=== PATIENT | female | born 1970 | race Caucasian/White ===

== ENCOUNTER 2023-11-02 10:37 | Inpatient (IN) | payer OTHER, SELFPAY ==
[2023-10-22 07:18] VITALS: BMI 35.6
[2023-10-22 08:49] LABS: Hematocrit 45.3 % (37.0-47.0); Hemoglobin 15.1 g/dL (12.0-16.0); Mean Corp Hgb Conc. 33.3 g/dL (33.0-37.0); Mean Corpuscular Hgb 30.6 pg (27.0-31.0); Mean Corpuscular Volume 91.7 fL (81.0-99.0); Mean Platelet Volume 10.5 fL (7.4-10.4); Platelet Count 214 10^3/uL (130-400); Red Blood Cell Count 4.94 10^6/uL (4.20-5.40); Red Cell Dist. Width 13.1 % (11.5-14.5); White Blood Cell Count 7.3 10^3/uL (4.8-10.8)
[2023-10-22 10:05] LABS: Blood Urea Nitrogen 23 mg/dl (7-17); Calcium 9.9 mg/dl (8.4-10.2); Carbon Dioxide 27 mmol/L (22-30); Chloride 104 mmol/L (98-107); Estimated Creatinine Clearance 94 ml/min; Glucose 96 mg/dl (70-99); Potassium 4.6 mmol/L (3.5-5.1); Sodium 139 mmol/L (135-145); eGFR > 60.00
[2023-11-02] VITALS (19 sets, daily range): BP systolic 25–157; BP diastolic 71–95; BMI 35.6; BMI 35.5
--- NOTE | 2023-11-02 07:26 | HP.FOC2 ---
Focused History & Physical
Chief Complaint
HPI:
Chief Complaint: Incisional hernia
HPI / Indication for Planned Procedure: Ms. Ortega is a 52-year-old female presenting today for scheduled operative correction of her known incisional hernia. She has a past abdominal surgical history of having undergone open total abdominal
hysterectomy, BSO and omentectomy in 2020 through a lower midline laparotomy. She subsequently began noticing swelling in the periumbilical region which was particularly more prominent after weight loss with occasional pressure and mild discomfort.
CT imaging confirmed the presence of a periumbilical incisional hernia spanning a maximal width of up to 5 cm in vertical length of 12 to 14 cm.
Relevant Past Medical History: Other (Left leg lymphedema, allergies, obesity with BMI 35.6)
Relevant Social History: Tobacco Use
Relevant Family History: Negative
Relevant Past Surgical History: Positive for ([place] teeth extraction, LEEP, D&C, CHAD/BSO and partial omentectomy 02/2021)
Review of Systems
Review of Pertinent Systems: All Systems Negative
Medication
See Medication form for detailed medications: Yes
Medication List (including Herbals & OTC):
cetirizine 10 mg tablet 10 mg PO HS Allergies 02/27/21
acetaminophen 500 mg tablet (Tylenol Extra Strength) 1,000 mg PO Q6HPRN PRN pain 03/22/21
ascorbic acid (vitamin C) 1,000 mg tablet (Vitamin C) 1 g PO DAILY 10/27/23
cholecalciferol (vitamin D3) 125 mcg (5,000 unit) tablet (Vitamin D3) 125 mcg PO DAILY 10/27/23
ibuprofen 400 mg tablet 400 mg PO Q6H PRN pain 10/27/23
multivitamin 1 tab PO DAILY 10/27/23
Medications Reviewed: Yes
Allergies and Reactions
Patient has Allergies: Yes
Noted Allergies and Reactions:
Allergy/AdvReac Type Severity Reaction Status Date / Time
grass pollen Allergy asthma Verified 10/27/23 16:07
Pertinent Physical Exam
All Other Systems: Negative
Head/Neck: Normal
Lungs: Normal
Heart: Normal
Abdomen: Other (Midline laparotomy surgical scar, reducible, soft incisional hernias in the periumbilical region. Nontender)
Extremities: Normal
Neurological: Normal
Diagnosis / Assessment
52-year-old female presenting for scheduled operative correction symptomatic incisional hernia
Plan / Procedure
Robotic assisted laparoscopic repair incisional hernia with mesh
Anesthesia/Sedation to be done by Anesthesia Provider: Yes
[2023-11-02] MEDS: TYLENOL 1000 MG PO (08:47)
[2023-11-02] MEDS: NORMOSOL-R 1000 IV (08:47)
--- NOTE | 2023-11-02 10:37 | W.SUR.PREOP ---
Pre-Operative Surgical Note
-
I have examined this patient prior to the performance of the scheduled procedure.
The patient's condition is unchanged from the time of the current History and
Physical and the patient is able to undergo the scheduled procedure.
--- NOTE | 2023-11-02 15:52 | W.IMMPOSTOP ---
Addendum entered and electronically signed by Lars Yu MD 11/02/23 16:17:
#[id number]
Original Note:
Surgical Immed Post Op Note
-
Primary Surgeon: Lars Yu
Assisting Surgeon: Rufina CEBALLOS
Pre-op Diagnosis: Incisional hernia
Post-op Diagnosis: Retrorectus adhesions
Incisional hernia; 15 cm in maximal length
Procedure Performed: Robotic assisted laparoscopic lysis of adhesions encompassing 90 minutes plus of operative time in addition to typical operative time
Robotic assisted laparoscopic eTEP retrorectus mesh repair incisional hernias; Bard soft mesh 30 cm x 15 cm
Anesthesia Type: GETA +0.25% Marcaine
Specimen / Cultures: None
Estimated Blood Loss: 30 mL
Complications: None immediate
Operative Findings: Left-sided retrorectus access for eTEP retrorectus incisional hernia repair. Significant posterior sheath/peritoneal adhesions to the rectus muscle around the vicinity of hernias at lower abdominal wall increasing typical
operative time 90+ minutes. Multiple incisional hernias spanning a length of lower abdominal laparotomy compassing total vertical length of 15 cm and 5 cm in width. Fascial defect closed with #1 PDS strata fix. Retrorectus mesh repair with 30 cm
x 15 cm Bard soft mesh.
The assistance of LIN Powell was required due to the complexity of the procedure. During the procedure LIN Powell assisted with retraction, assistance with robotic instrumentation, and closure of the wound. I was present for the entirety
of the procedure.
Drains: 19 Pancho position from left lower quadrant robotic site into retrorectus location.
Patient updated postoperatively and waiting area
[2023-11-02] MEDS: DILAUDID 0.25 MG IV (16:27)
[2023-11-02] MEDS: NSS 1000 IV (17:21)
[2023-11-02] MEDS: ZOFRAN 4 MG IV (18:15)
[2023-11-02] MEDS: TORADOL 10 MG IV (22:09)
--- NOTE | 2023-11-03 00:48 | PTCARENOTE ---
Patient received from PACU via bed. She was oriented to room and surroundings. She is drowsy but easily arousable to Ox4. HRR Breath sounds are CTA B/L. Abdominal binder in place. Lap site with surgical glue intact. Left DUNG drain with
dressing intect draining sanguineous drainage. Cox draining clear yellow urine. IVF as ordered. VSS.
[2023-11-03] MEDS: NSS 1000 IV ×2 (01:15→08:32)
[2023-11-03 03:30] VITALS: BP 134/83
[2023-11-03 05:41] LABS: Hematocrit 38.5 % (37.0-47.0); Mean Corp Hgb Conc. 33.8 g/dL (33.0-37.0); Mean Corpuscular Hgb 31.4 pg (27.0-31.0); Mean Platelet Volume 10.1 fL (7.4-10.4); Platelet Count 162 10^3/uL (130-400); Red Blood Cell Count 4.14 10^6/uL (4.20-5.40)
[2023-11-03 06:22] LABS: Blood Urea Nitrogen 10 mg/dl (7-17); Calcium 8.7 mg/dl (8.4-10.2); Carbon Dioxide 28 mmol/L (22-30); Chloride 107 mmol/L (98-107); Estimated Creatinine Clearance 110 ml/min; Glucose 90 mg/dl (70-99); Potassium 4.2 mmol/L (3.5-5.1); Sodium 137 mmol/L (135-145); eGFR > 60.00
--- NOTE | 2023-11-03 07:17 | W.PN.GS2 ---
Today's Communication / Plan
-
`
Assessment / Plan
-
Assessment: 52 y/o female POD#1 s/p Robotic assisted laparoscopic eTEP retrorectus mesh repair incisional hernias (15cm)
AFVSS
doing well post op
DUNG with expected character/quantity post op
Plan: multimodal pain control options- toradol/dilaudid/oxy when ally PO
full liquids and advance to regular diet if no nausea/distention
ambulate/OOBTC
wean supplemental oxygen
payne out and DTV
maintain DUNG
SCDs/Lovenox/ambulation for VTEp
Subjective Data
-
Date of Service: November 03, 2023
pt seen and examined
comfortable when lying in bed with pain control
initial post op nausea subsided
+flatus
Objective Data
-
Intake and Output
11/02/23 11/03/23 11/04/23
06:59 06:59 06:59
Intake Total 1790 / 1790
Output Total 1290 / 1290
Balance 500 / 500
Intake:
Oral fluids 160 / 160
IV fluids (Total) 1630 / 1630
NSS @ 120 ML/HR 160 / 160
Normosol 150 / 150
Output:
Drain Output (Total) 90 / 90
Left Abdomen Gonzales-Prasad 90 / 90
Urine, Payne 1200 / 1200
Vital Signs
Temp Pulse Resp BP Pulse Ox
98.3 F 83 17 134/83 98
11/03/23 03:30 11/03/23 03:30 11/03/23 03:30 11/03/23 03:30 11/03/23 03:30
Lab Results
11/03/23 05:17
11/03/23 05:17
Calcium 8.7 mg/dl (8.4-10.2) 11/03/23 05:17
Physical Exam
-
NAD AAOx3
ABD: soft, ND, typical post op tenderness at incision sites and midline abdomen
surgical sites with glue dressings
DUNG with SSF
[2023-11-03 08:00] VITALS: BP 133/77
[2023-11-03 08:09] VITALS: BP 133/77
[2023-11-03] MEDS: COLACE 100 MG PO (08:32)
[2023-11-03] MEDS: TORADOL 10 MG IV (09:41)
--- NOTE | 2023-11-03 09:53 | CM ---
Alert awake oriented patient who lives with her Samson in a split story home with 0 step to enter and 12 steps to bed room but usually sleeps in recliner first floor. She is independent in driving and all activities of daily
living.Offered VN she will have a DUNG drain at wa . She picked [facility]
No SNF/VN hx
Pharmacy [facility]
PCP Dr Mary Jon
PLAN Home with [facility] if accepted
[2023-11-03 11:25] VITALS: BP 126/72
--- NOTE | 2023-11-03 12:15 | W.DS.TRANS ---
DC Summary - Network Support Administrator
-
Discharge Instructions:
Sleep Apnea Risk Low
Discharge Diagnosis/Procedures Robotic assisted laparoscopic repair of
incisional hernias with mesh
Diet As tolerated,Regular
Additional Diets Smaller meals initially after surgery has
abdominal bloating and distention are common for
the first few days postoperatively
Activity No strenuous activity
Additional Activity No lifting over 20 pounds for 6 weeks.
Driving Restrictions No driving for 2 to 3 days or if using narcotics
Bathing Restrictions OK to Shower
Wound Care Glue at surgical sites typically peels off in 2
to 3 weeks. Keep DUNG bulb to suction. Empty and
record outputs 2 times a day, and as needed.
Keep paper record of drainage amounts. Okay to
shower with DUNG drain in place. Apply clean/dry
gauze dressing daily and after showers to skin
exit site.
Instructions: Gonzales-Prasad Drain
Stand-Alone Forms:
Changes to Home Medications: No
Discharge Medications:
DC Medications w/original date entered in [employer]
cetirizine 10 mg tablet 10 mg PO HS Allergies 02/27/21
acetaminophen 500 mg tablet (Tylenol Extra Strength) 1,000 mg PO Q6HPRN PRN pain 03/22/21
ascorbic acid (vitamin C) 1,000 mg tablet (Vitamin C) 1 g PO DAILY 10/27/23
cholecalciferol (vitamin D3) 125 mcg (5,000 unit) tablet (Vitamin D3) 125 mcg PO DAILY 10/27/23
ibuprofen 400 mg tablet 400 mg PO Q6H PRN pain 10/27/23
multivitamin 1 tab PO DAILY 10/27/23
oxycodone 5 mg tablet 5 mg PO Q4HPRN PRN breakthrough/severe pain #15 tabs 11/03/23
polyethylene glycol 3350 17 gram/dose oral powder (Miralax) 4 g PO DAILY PRN Constipation #119 grams 11/03/23
Home Medication Changes
Pending Results: No
== END 2023-11-03 14:20 | disposition home health service (06) | DRG 337 ==
LOC: 2 SOUTH 10:37
PROVIDERS: ADMITTING PHYSICIAN Surgery; FAMILY PHYSICIAN Family Medicine
PROC: 0DNW4ZZ Release Peritoneum, Percutaneous Endoscopic Approach (ICD-10-PCS; 2023-11-02)
PROC: 8E0W4CZ Robotic Assisted Procedure of Trunk Region, Percutaneous Endoscopic Approach (ICD-10-PCS; 2023-11-02)
PROC: 0WUF4JZ Supplement Abdominal Wall with Synthetic Substitute, Percutaneous Endoscopic Approach (ICD-10-PCS; 2023-11-02)
DX: K43.2 Incisional hernia without obstruction or gangrene (principal)
CPT/HCPCS: 36415; 80048; 85027; 93005; C1781

== ENCOUNTER 2025-02-21 00:24 | Emergency (ER) | payer OTHER, SELFPAY ==
[2025-02-21 00:38] VITALS: BP 158/94
[2025-02-21 01:01] LABS: Hematocrit 43.8 % (37.0-47.0); Hemoglobin 15.1 g/dL (12.0-16.0); Mean Corp Hgb Conc. 34.5 g/dL (33.0-37.0); Mean Corpuscular Volume 89.0 fL (81.0-99.0); Nucleated Red Blood Cells % 0 %; Platelet Count 212 10^3/uL (130-400); Red Cell Dist. Width 12.7 % (11.5-14.5)
[2025-02-21 01:28] LABS: ALT (SGPT) 22 U/L (0-35); AST (SGOT) 26 U/L (14-36); Albumin 4.8 g/dl (3.5-5.0); Alkaline Phosphatase 61 U/L (38-126); Blood Urea Nitrogen 20 mg/dl (7-17); Calcium 10.1 mg/dl (8.4-10.2); Carbon Dioxide 31 mmol/L (22-30); Chloride 103 mmol/L (98-107); Glucose 122 mg/dl (70-99); Lipase 82 U/L (23-300); Potassium 4.3 mmol/L (3.5-5.1); Sodium 140 mmol/L (135-145); Total Protein 7.7 g/dl (6.3-8.2); eGFR > 60.00
--- NOTE | 2025-02-21 02:18 | ED.GENMED ---
History of Present Illness
General
Chief Complaint: Abdominal Symptoms
Source: patient
Exam Limitations: none
Time Seen by Provider: 02/21/25 02:14
Nursing documentation reviewed up to this point in time: agreed with
History of Present Illness
History of Present Illness:
Note:
CHIEF COMPLAINT(S)
abdominal pain and nausea with vomiting.
HISTORY OF PRESENT ILLNESS
The patient is a 54-year-old female with pmh of asthma, uterine fibroids, htn, with a history of experiencing abdominal pain that began today around 10-11 AM. She described the pain as initially starting after breakfast and worsening following
lunch and dinner. The pain was described as 'from top to bottom' compared to her usual localized gas pain. Typically, the patient experiences what she identifies as gas pain and takes simethicone (Gas-X) or activates digestive enzymes (Beano), which
provide relief. However, today�s pain was relentless and more severe. She notes the pain becoming significantly worse upon lying down around 9:30 PM, which persisted until she vomited twice around 11 PM and midnight. Vomiting led to concerns, as
this is atypical for her usual gas-related issues. She denies diarrhea but reports a bowel movement at approximately 8:30 PM, described as soft but formed, and denies experiencing blood in vomitus or rectal bleeding. The patient consumed Wallisian
yogurt, banana, coconut, pecans for breakfast, salad for lunch, and ground chicken and beef with egg noodles and green beans for dinner. No raw vegetables or suspected food allergens were ingested erroneously. She has a past surgical history of
hernia repair and hysterectomy. She denies any history of diverticulitis or ulcers and reports no concurrent respiratory or cardiac symptoms.
PAST MEDICAL AND SURGICAL HISTORY
The patient indicates a history of severe gas pain. Past surgical history includes hernia repair and hysterectomy last year. No additional significant medical conditions reported.
SOCIAL DETERMINANTS AFFECTING HEALTH
The patient�s mother recently fell and was rehoused in a rehabilitation facility. The patient has been experiencing significant stress and fatigue due to these circumstances, suggesting a possible source of physical and emotional stress.
PHYSICAL EXAM
General: Alert, no acute distress, well appearing.
Skin: Warm, dry.
Head: Normocephalic, atraumatic.
Neck: Supple, trachea midline.
Eye Ears, nose, mouth and throat: Oral mucosa moist.
Cardiovascular: Normal peripheral perfusion, No edema.
Respiratory: Respirations are non-labored.
Gastrointestinal: Abdomen is non-tender to palpation, non-distended
Back: Normal range of motion, Normal alignment.
Musculoskeletal: Normal range of motion, normal strength.
Neurological: Alert and oriented to person, place, time, and situation, No focal neurological deficit observed.
Psychiatric: Cooperative, appropriate mood & affect.
PLAN
1. Obtain a computed tomography scan of the abdomen to rule out obstruction, diverticulitis, or other significant gastrointestinal pathology.
2. Administer a dose of bentyl (dicyclomine), antispasmodic, to assess its effect on symptom relief.
3. Consider referring the patient to a flat sorter processor for further evaluation if symptoms persist or the CT scan is unremarkable, with attention to potential irritable bowel syndrome or food sensitivity triggers.
4. Monitor and offer supportive care for any recurrent symptoms while observing possible inpatient treatment based on CT findings.
DIFFERENTIAL DIAGNOSIS
The Differential Diagnosis includes, in no particular order and is not limited to:
1. Gastroenteritis
2. Irritable bowel syndrome
3. Gastrointestinal obstruction
4. Diverticulitis
5. Peptic ulcer disease
6. Gallstones
7. Hernia-related complications
8. Appendicitis
9. Gastritis
10. Kidney stones
CHART REVIEW
Reviewed discharge planning summary from 11/03/2023 patient seen for incisional hernia repair with mesh, reviewed discharge summary from 03/29/2021 patient seen for abnormal uterine bleeding and had total abdominal hysterectomy, reviewed external
medical summary reviewed appointment from January 20, 2024 patient seen for postoperative follow-up
MDM/DISPOSITION
54-year-old female presents emergency department today with concerns of abdominal pain and 1 episode of vomiting. The pain has been going on all day but has been steadily improving. She has no associated fever. Physical exam she is well-appearing
no acute distress. Her abdomen is nondistended and nontender to palpation. Labs reviewed no leukocytosis noted. She has elevated BUN to creatinine ratio. She is given IV fluids and Bentyl. My reevaluation she is pain-free. Urinalysis on
unremarkable. CT scan shows acute gastroenteritis. There is some mesenteric inflammation noted however considering patient is pain-free, low suspicion for mesenteric ischemia will hold off on lactic at this time give strict return precautions.
Patient stable for discharge. Discussed conservative measures at home. Discussed follow-up with GI.
UPDATE
5:16 AM--Patient feeling well. No reportable pain at this time. No tenderness to palpation. Did offer patient script for zofran however patient is feeling well and does not think she would need this at home. Patient stable for discharge.
Review of Systems
Review of Systems
All Other Systems: ROS reviewed and negative except as documented in HPI and ROS
Phy Exam
Physical Exam
Physical Exam:
see hpi
Course
Orders/Labs/Results
Orders:
Orders
02/21/25 00:54
Complete Blood Count/With Diff Urgent
Comprehensive Metabolic Panel Urgent
Lipase Urgent
02/21/25 02:40
CT Abd/pelvis W Iv Cont Urgent
Comment:
Reason For Exam: diffuse lower abdominal pain
0.9% Sodium Chloride 500 ml [Nss] 500 ml IV BOLUS
Dicyclomine [Bentyl] 10 mg PO NOW STA
02/21/25 02:47
Urinalysis Reflex To Culture Urgent
Date Specimen was Collected: 02/21/25
Time Specimen was Collected: 02:42
Urine Microscopic Reflex Cult Urgent
Urine Culture Urgent
HOWIE Source: U
Specimen Description:
Date Specimen was Collected: 02/21/25
Time Specimen was Collected: 02:42
Abnormal Lab Results
02/21/25 02/21/25
00:54 02:47
WBC 11.7 H 10^3/uL
(4.8-10.8)
Absolute Neuts (auto) 8.9 H 10^3/uL
(1.4-6.5)
Neutrophils % 76.1 H %
(42.2-75.2)
Lymphocytes % 17.2 L %
(20.5-51.1)
Carbon Dioxide 31 H mmol/L
(22-30)
BUN 20 H mg/dl
(7-17)
Glucose 122 H mg/dl
(70-99)
Ur Occult Blood Reflex 1+ A
(Negative)
Leukocyte Esterase Rfl 1+ A
(Negative)
Urine Bacteria (Reflex) Few A
(Negative)
Urine Albumin (Reflex) 2+ A
(Neg - Trace)
02/21/25 00:54
02/21/25 00:54
Vital Signs
Initial and Last Documented VS:
Initial Vital Signs
Temp Pulse BP Pulse Ox
98.5 F 99 158/94 100
02/21/25 00:38 02/21/25 00:38 02/21/25 00:38 02/21/25 00:38
Last Documented Vital Signs
Temp Pulse Resp BP Pulse Ox
98.5 F 81 18 133/80 97
02/21/25 00:38 02/21/25 04:40 02/21/25 04:40 02/21/25 04:40 02/21/25 04:40
*Pulse Oximetry
SaO2: 100
Oxygen Mode of Delivery: Room air
Patient hypoxic: no
*Critical Care Note
Total Time (30-74mins, 75-104mins- exclusive of procedures): Not Applicable
ED Attending Note
-
Portions of this chart may have been created with voice recognition software.� Occasional wrong word or��sound alike� substitutions may have occurred due to the inherent limitations of voice recognition software.
Discharge Plan
Departure
Patient Disposition: Home (Routine Discharge)
Date of Disposition: 02/21/25
Time of Disposition: 05:19
Patient with high blood pressure during this ER visit?: Yes
Condition: Good
Discharge Problem:
Acute gastroenteritis
Instructions: Viral gastroenteritis in adults, BLOOD PRESSURE
Prescriptions:
No Action
cetirizine 10 MG tablet
10 mg PO HS
acetaminophen [Tylenol Extra Strength] 500 MG tablet
1,000 mg PO Q6HPRN PRN (Reason: pain)
multivitamin Tablet
1 tab PO DAILY
ascorbic acid (vitamin C) [Vitamin C] 1,000 mg Tablet
1 g PO DAILY
ibuprofen 400 mg Tablet
400 mg PO Q6H PRN (Reason: pain)
cholecalciferol (vitamin D3) [Vitamin D3] 125 mcg (5,000 unit) Tablet
125 mcg PO DAILY
polyethylene glycol 3350 [Miralax] 17 gram/dose powder
4 g PO DAILY PRN (Reason: Constipation) Qty: 119 0RF
Rx Instructions:
start a laxative such as MIRALAX on day 2 after surgery if no bowel movement yet as long as no nausea/vomiting and passing gas
oxycodone 5 mg tablet
5 mg PO Q4HPRN PRN (Reason: breakthrough/severe pain) Qty: 15 0RF
Referrals:
Deborah Jon MD [Family Provider, Family Practice]
Activity Restrictions/Additional Instructions:
Please follow-up with your primary care provider.
Please stay well-hydrated. Please eat small frequent meals.
PLEASE RETURN TO THE ER SHOULD YOU DEVELOP ACUTE WORSENING OF YOUR SYMPTOMS, INTRACTABLE NAUSEA OR VOMITING, DARK TARRY STOOLS, CHEST PAIN, SHORTNESS OF BREATH, OR ANY OTHER SIGNS OR SYMPTOMS WORRISOME TO YOU.
Interventions
Interventions:
*Risk Screen - Suicide Last Done: 02/21/25 00:43
*Neglect/Abuse Screening Last Done: 02/21/25 00:43
*ED- Fall Risk Assessment Last Done: 02/21/25 00:43
*ED COVID-19 Vaccine History Last Done: 02/21/25 00:43
*Nursing Disposition Last Done: 02/21/25 05:25
SJ-Iauiwp-Bkxhkkfnze Assessment Last Done: 02/21/25 01:30
Discharge Date and Time
Discharge Date/Time: 02/21/25 05:26
Print Language: YORUBA
[2025-02-21] MEDS: NSS 500 IV (02:51)
[2025-02-21] MEDS: BENTYL 10 MG PO (02:52)
[2025-02-21 03:34] LABS: Urine Character Clear (Clear)
[2025-02-21 03:52] LABS: Urine Red Blood Cell 0-2 /HPF (0-2); Urine White Cell 0-2 /HPF (0-5)
[2025-02-21 04:40] VITALS: BP 133/80
== END 2025-02-21 05:26 | disposition home or self-care (01) ==
LOC: EMR 00:24
PROVIDERS: Physician Assistant; EMERGENCY PHYSICIAN Emergency Medicine; FAMILY PHYSICIAN Family Medicine
DX: K52.9 Noninfective gastroenteritis and colitis, unspecified (principal); I10 Essential (primary) hypertension; J45.909 Unspecified asthma, uncomplicated
CPT/HCPCS: 99284; 96360; 74177; 80053; 81003; 81015; 83690; 85025; 87086; Q9967

== ENCOUNTER 2025-03-21 04:16 | Emergency (ER) | payer OTHER, SELFPAY ==
[2025-03-21 04:17] VITALS: BP 164/102
[2025-03-21 04:45] VITALS: BP 148/87
[2025-03-21 05:00] VITALS: BP 150/89
[2025-03-21 05:03] LABS: Hematocrit 47.7 % (37.0-47.0); Hemoglobin 16.4 g/dL (12.0-16.0); Mean Corp Hgb Conc. 34.4 g/dL (33.0-37.0); Mean Corpuscular Volume 89.2 fL (81.0-99.0); Nucleated Red Blood Cells % 0 %; Platelet Count 247 10^3/uL (130-400); Red Cell Dist. Width 12.8 % (11.5-14.5)
[2025-03-21] MEDS: ZOFRAN 4 MG IV (05:18)
[2025-03-21 05:22] LABS: ALT (SGPT) 26 U/L (0-35); AST (SGOT) 26 U/L (14-36); Albumin 5.1 g/dl (3.5-5.0); Alkaline Phosphatase 70 U/L (38-126); Blood Urea Nitrogen 20 mg/dl (7-17); Calcium 10.3 mg/dl (8.4-10.2); Carbon Dioxide 26 mmol/L (22-30); Chloride 102 mmol/L (98-107); Glucose 155 mg/dl (70-99); Lipase 118 U/L (23-300); Potassium 4.4 mmol/L (3.5-5.1); Sodium 139 mmol/L (135-145); Total Protein 8.0 g/dl (6.3-8.2); eGFR > 60.00
[2025-03-21] MEDS: PROTONIX IV 40 MG IV (05:31)
[2025-03-21] MEDS: TORADOL 15 MG IV (05:32)
[2025-03-21] MEDS: NSS 1000 IV (05:32)
--- NOTE | 2025-03-21 05:34 | ED.GENMED ---
History of Present Illness
General
Chief Complaint: Abdominal Symptoms
Source: patient
Exam Limitations: none
Time Seen by Provider: 03/21/25 05:19
Nursing documentation reviewed up to this point in time: agreed with
History of Present Illness
History of Present Illness:
Patient presents to ED secondary to persistent nausea, vomiting, non-bloody diarrhea, along with lower abdominal crampy sensation over the past 2 days. Patient was evaluated by her primary care physician yesterday and was prescribed Bentyl, without
improvement in symptoms. Denies fever or chills. Denies trauma. Denies recent travel. Denies recent change in medications or diet. Denies sick contact. Of note, patient was eval in ED 1 month ago for same complaint, which was treated
conservatively and symptoms had resolved completely.
Review of Systems
Review of Systems
Allergies reviewed?: Yes
All Other Systems: ROS reviewed and negative except as documented in HPI and ROS
Constitutional: Reports no symptoms; Denies fever or chills
Respiratory: Reports no symptoms
Cardiac: Reports no symptoms
ABD/GI: Reports abdominal pain, nausea, vomiting and diarrhea
Musculoskeletal: Reports no symptoms
Skin: Reports no symptoms
Neurological: Reports no symptoms
Phy Exam
Physical Exam
Physical Exam:
Physical Exam
General: mild distress, not acutely ill. afebrile
Head: nc/at. eomi
Neck: supple. normal range of motion.
Heart: s1/s2 regular rate and rhythm
Lungs: no acute respiratory distress. clear bilaterally
Abdomen: normal bowel sounds. not tender. no distention
Neuro: alert and oriented x 3. no focal neurological deficits
Skin: no rash
Psychiatric: well kept. interactive and cooperative
Extremities: no edema. no calf tenderness.
Course
Orders/Labs/Results
Orders:
Orders
03/21/25 04:46
Complete Blood Count/With Diff Urgent
Comprehensive Metabolic Panel Urgent
Lipase Urgent
03/21/25 05:17
Ondansetron Injectable [Zofran] 4 mg .ROUTE .STK-MED ONE
03/21/25 05:18
Ondansetron Injectable [Zofran] 4 mg IV NOW STA
03/21/25 05:29
0.9% Sodium Chloride 1000 ml [Nss] 1,000 ml IV BOLUS
Ketorolac [Toradol] 15 mg IV NOW STA
Pantoprazole [Protonix IV] 40 mg IV NOW STA
Abnormal Lab Results
03/21/25
04:46
WBC 14.1 H 10^3/uL
(4.8-10.8)
Hgb 16.4 H g/dL
(12.0-16.0)
Hct 47.7 H %
(37.0-47.0)
MPV 10.6 H fL
(7.4-10.4)
Abs Immat Gran (auto) 0.1 H 10^3/uL
(0-0.05)
Absolute Neuts (auto) 11.0 H 10^3/uL
(1.4-6.5)
Absolute Monos (auto) 0.9 H 10^3/uL
(0.1-0.6)
Neutrophils % 78.2 H %
(42.2-75.2)
Lymphocytes % 14.6 L %
(20.5-51.1)
BUN 20 H mg/dl
(7-17)
Glucose 155 H mg/dl
(70-99)
Calcium 10.3 H mg/dl
(8.4-10.2)
Albumin 5.1 H g/dl
(3.5-5.0)
03/21/25 04:46
03/21/25 04:46
Vital Signs
Initial and Last Documented VS:
Initial Vital Signs
Temp Pulse Resp BP Pulse Ox
98.3 F 100 26 164/102 100
03/21/25 04:17 03/21/25 04:17 03/21/25 04:17 03/21/25 04:17 03/21/25 04:17
Last Documented Vital Signs
Temp Pulse Resp BP Pulse Ox
98.3 F 82 12 139/80 94
03/21/25 04:17 03/21/25 07:00 03/21/25 07:00 03/21/25 07:00 03/21/25 07:00
MDM/Problems Addressed
MDM/Problems Addressed:
Patient reports improvement in symptoms after treatment. Repeat abdominal exam: Soft and nontender. Patient's symptoms consistent with likely nonspecific viral illness. Otherwise, patient is afebrile, hemodynamically stable, and appears
comfortable at time of discharge. In light of patient's multiple episodes of vomiting and diarrhea recently, [place] text will be sent to patient's GI physician, in hopes of obtaining an earlier appointment so that she can be evaluated as an
outpatient. Return precautions provided
*Pulse Oximetry
SaO2: 95
Oxygen Mode of Delivery: Room air
Patient hypoxic: no
*Critical Care Note
Total Time (30-74mins, 75-104mins- exclusive of procedures): Not Applicable
ED Attending Note
-
Portions of this chart may have been created with voice recognition software.� Occasional wrong word or��sound alike� substitutions may have occurred due to the inherent limitations of voice recognition software.
Discharge Plan
Departure
Patient Disposition: Home (Routine Discharge)
Date of Disposition: 03/21/25
Time of Disposition: 06:54
Patient with high blood pressure during this ER visit?: Yes
Condition: Fair
Discharge Problem:
Nausea, vomiting and diarrhea
Instructions: Viral gastroenteritis in adults, [place] Diet
Prescriptions:
New
ondansetron 4 mg Tablet,Disintegrating
4 mg PO TIDPRN PRN (Reason: nausea/vomiting) Qty: 12 0RF
No Action
cetirizine 10 MG tablet
10 mg PO HS
acetaminophen [Tylenol Extra Strength] 500 MG tablet
1,000 mg PO Q6HPRN PRN (Reason: pain)
multivitamin Tablet
1 tab PO DAILY
ascorbic acid (vitamin C) [Vitamin C] 1,000 mg Tablet
1 g PO DAILY
ibuprofen 400 mg Tablet
400 mg PO Q6H PRN (Reason: pain)
cholecalciferol (vitamin D3) [Vitamin D3] 125 mcg (5,000 unit) Tablet
125 mcg PO DAILY
polyethylene glycol 3350 [Miralax] 17 gram/dose powder
4 g PO DAILY PRN (Reason: Constipation) Qty: 119 0RF
Rx Instructions:
start a laxative such as MIRALAX on day 2 after surgery if no bowel movement yet as long as no nausea/vomiting and passing gas
oxycodone 5 mg tablet
5 mg PO Q4HPRN PRN (Reason: breakthrough/severe pain) Qty: 15 0RF
Referrals:
Margi Miller MD [Family Provider]
Quinton Calvillo MD [Active, Gastroenterology]
Activity Restrictions/Additional Instructions:
As discussed, please follow-up with your primary care physician and/or your GI physician for reevaluation. Please return to ED with worsening symptoms, i.e. fever/worsening pain/vomiting. Your prescription has been sent electronically to [facility] in [place].
Interventions
Interventions:
*Risk Screen - Suicide Last Done: 03/21/25 04:47
*General Assessment Last Done: 03/21/25 04:47
*Neglect/Abuse Screening Last Done: 03/21/25 04:47
*ED- Fall Risk Assessment Last Done: 03/21/25 04:47
*ED COVID-19 Vaccine History Last Done: 03/21/25 04:47
*Nursing Disposition Last Done: 03/21/25 07:53
LH-Rkihvn-Zyqodaosvy Assessment Last Done: 03/21/25 04:47
Discharge Date and Time
Discharge Date/Time: 03/21/25 07:54
Print Language: ARMENIAN
[2025-03-21 06:00] VITALS: BP 133/82
[2025-03-21 07:00] VITALS: BP 139/80
--- NOTE | 2025-03-21 08:01 | EDRN ---
Call to pt placed re- discharge instructions (the wrong name was on the paper she was given, though the instructions were the same). Pt will shred those.
== END 2025-03-21 07:54 | disposition home or self-care (01) ==
LOC: EMR 04:16
PROVIDERS: EMERGENCY PHYSICIAN Emergency Medicine; FAMILY PHYSICIAN Family Medicine
DX: R11.2 Nausea with vomiting, unspecified (principal); R19.7 Diarrhea, unspecified; R03.0 Elevated blood-pressure reading, without diagnosis of hypertension
CPT/HCPCS: 99284; 96374; 96375 ×2; 96361; 80053; 83690; 85025

== ENCOUNTER 2025-03-22 18:25 | Inpatient (IN) | payer OTHER, SELFPAY ==
[2025-03-22] VITALS (7 sets, daily range): BP systolic 94–157; BP diastolic 62–101; BMI 38.1; BMI 41.9
[2025-03-22 11:50] LABS: Hematocrit 44.2 % (37.0-47.0); Hemoglobin 14.8 g/dL (12.0-16.0); Mean Corp Hgb Conc. 33.5 g/dL (33.0-37.0); Mean Corpuscular Volume 89.7 fL (81.0-99.0); Nucleated Red Blood Cells % 0 %; Platelet Count 188 10^3/uL (130-400); Red Cell Dist. Width 12.9 % (11.5-14.5)
[2025-03-22 12:12] LABS: ALT (SGPT) 26 U/L (0-35); AST (SGOT) 27 U/L (14-36); Albumin 4.6 g/dl (3.5-5.0); Alkaline Phosphatase 59 U/L (38-126); Blood Urea Nitrogen 14 mg/dl (7-17); Calcium 9.5 mg/dl (8.4-10.2); Carbon Dioxide 27 mmol/L (22-30); Chloride 103 mmol/L (98-107); Glucose 91 mg/dl (70-99); Lipase 53 U/L (23-300); Potassium 4.4 mmol/L (3.5-5.1); Sodium 137 mmol/L (135-145); Total Protein 7.2 g/dl (6.3-8.2); eGFR > 60.00
--- NOTE | 2025-03-22 13:10 | ED.GENMED ---
History of Present Illness
<Romeo Diaz MD - Last Filed: 03/22/25 13:17>
General
Chief Complaint: Abdominal Pain
Source: patient
Exam Limitations: none
Time Seen by Provider: 03/22/25 12:36
Nursing documentation reviewed up to this point in time: agreed with
History of Present Illness
History of Present Illness:
54-year-old female with past medical history as noted presents to the ER for the third time in the past month for evaluation of abdominal pain. Patient was initially seen in the emergency room 02/21/2025 with abdominal pain associated with vomiting;
CT at that time was concerning for gastroenteritis and she was discharged with supportive care and she says that that episode resolved after few days. She says that she had recurrence of symptoms starting a few days ago that feel similar to
previous but much more intense. She was seen in the emergency room 03/21 and had reassuring labs no repeat imaging, discharged with a referral to GI. She says that she has an appointment with GI tomorrow but has not been able to manage her
symptoms�mainly her pain�which prompted return visit to the ER. She describes intense cramping pain radiating from the epigastrium down towards the periumbilical region. She says that she had associated nausea and vomiting shortly after onset of
symptoms; now has nausea but no vomiting. She says she has not had anything to eat in the past few days. She says that she did have an episode of loose stools shortly after onset but has not had a bowel movement in about 2 or 3 days. She has not
had any urinary symptoms. She has not had any fever or chills. She does have prior history of hysterectomy as well as a prior hernia repair in the abdomen.
Review of Systems
<Romeo Diaz MD - Last Filed: 03/22/25 13:17>
Review of Systems
All Other Systems: ROS reviewed and negative except as documented in HPI and ROS
Constitutional: Denies fever or chills
Respiratory: Denies trouble breathing
Cardiac: Denies chest pain
ABD/GI: Reports abdominal pain, nausea, vomiting and diarrhea
: Denies dysuria, frequency or flank pain
Musculoskeletal: Denies neck pain or back pain
Neurological: Denies dizzy or headache
Phy Exam
<Romeo Diaz MD - Last Filed: 03/22/25 13:17>
Physical Exam
Physical Exam:
General: Awake, alert, oriented x3; appears anxious but in no acute distress
Head: Normocephalic, atraumatic
Eyes: Conjunctiva normal, sclera anicteric
Throat: Airway intact, handling secretions
Neck: Trachea midline, supple without meningismus
Lungs: Clear to auscultation bilaterally, no wheezing, rales, rhonchi
Heart: Regular rate and rhythm, no murmurs, gallops, or rubs
Abd: Normal active bowel sounds; abdomen is soft, non distended, mild diffuse tenderness
Neuro: Grossly intact
Skin: No rash in area of concern
Extremities: Warm and well-perfused
Scores
<Romeo Diaz MD - Last Filed: 03/22/25 13:17>
Heart Failure Risk
Heart Failure Risk Score: Not Applicable
Heart Score for Chest Pain Patients
STEMI patient?: Not applicable
Withdrawal Assessment of Alcohol
Withdrawal Assessment Completed?: Not applicable
Course
<Romeo Diaz MD - Last Filed: 03/22/25 13:17>
Orders/Labs/Results
Orders:
Orders
03/22/25 11:11
Electrocardiogram (*1) Urgent
Reason for Study: Abdominal Pain
03/22/25 11:12
EKG- Treatment ONCE
03/22/25 11:40
Comprehensive Metabolic Panel Urgent
Lipase Urgent
03/22/25 11:41
Complete Blood Count/With Diff Urgent
03/22/25 13:06
CT Abd/pelvis W Iv Cont Urgent
Comment:
Reason For Exam: abd pain, n/v
03/22/25 13:08
0.9% Sodium Chloride 1000 ml [Nss] 1,000 ml IV BOLUS
Morphine Sulfate 4 mg IV NOW STA
Ondansetron Injectable [Zofran] 4 mg IV NOW STA
03/22/25 13:39
Drug Screen, Urine [Urine Drug Abuse Screen] Urgent
Date Specimen was Collected: 03/22/25
Time Specimen was Collected: 13:39
03/22/25 13:40
Urinalysis Reflex To Culture Urgent
Date Specimen was Collected: 03/22/25
Time Specimen was Collected: 13:39
Urine Microscopic Reflex Cult Urgent
Abnormal Lab Results
03/22/25 03/22/25
11:41 13:40
Absolute Neuts (auto) 7.4 H 10^3/uL
(1.4-6.5)
Lymphocytes % 18.0 L %
(20.5-51.1)
Urine Ketones 3+ A
(Negative)
Ur Occult Blood Reflex 1+ A
(Negative)
Urine RBC 3-6 A /HPF
(0-2)
Urine Albumin (Reflex) 1+ A
(Neg - Trace)
03/22/25 11:41
03/22/25 11:40
Vital Signs
Initial and Last Documented VS:
Initial Vital Signs
Temp Pulse Resp BP Pulse Ox
99 F 89 16 157/101 100
03/22/25 11:08 03/22/25 11:08 03/22/25 11:08 03/22/25 11:08 03/22/25 11:08
Last Documented Vital Signs
Temp Pulse Resp BP Pulse Ox
98.6 F 91 22 127/78 99
03/22/25 14:00 03/22/25 13:47 03/22/25 13:47 03/22/25 15:10 03/22/25 13:47
<Margi Placido, DO - Last Filed: 03/22/25 15:31>
Orders/Labs/Results
Orders:
Orders
03/22/25 11:11
Electrocardiogram (*1) Urgent
Reason for Study: Abdominal Pain
03/22/25 11:12
EKG- Treatment ONCE
03/22/25 11:40
Comprehensive Metabolic Panel Urgent
Lipase Urgent
03/22/25 11:41
Complete Blood Count/With Diff Urgent
03/22/25 13:06
CT Abd/pelvis W Iv Cont Urgent
Comment:
Reason For Exam: abd pain, n/v
03/22/25 13:08
0.9% Sodium Chloride 1000 ml [Nss] 1,000 ml IV BOLUS
Morphine Sulfate 4 mg IV NOW STA
Ondansetron Injectable [Zofran] 4 mg IV NOW STA
03/22/25 13:39
Drug Screen, Urine [Urine Drug Abuse Screen] Urgent
Date Specimen was Collected: 03/22/25
Time Specimen was Collected: 13:39
03/22/25 13:40
Urinalysis Reflex To Culture Urgent
Date Specimen was Collected: 03/22/25
Time Specimen was Collected: 13:39
Urine Microscopic Reflex Cult Urgent
Abnormal Lab Results
03/22/25 03/22/25
11:41 13:40
Absolute Neuts (auto) 7.4 H 10^3/uL
(1.4-6.5)
Lymphocytes % 18.0 L %
(20.5-51.1)
Urine Ketones 3+ A
(Negative)
Ur Occult Blood Reflex 1+ A
(Negative)
Urine RBC 3-6 A /HPF
(0-2)
Urine Albumin (Reflex) 1+ A
(Neg - Trace)
03/22/25 11:41
03/22/25 11:40
Vital Signs
Initial and Last Documented VS:
Initial Vital Signs
Temp Pulse Resp BP Pulse Ox
99 F 89 16 157/101 100
03/22/25 11:08 03/22/25 11:08 03/22/25 11:08 03/22/25 11:08 03/22/25 11:08
Last Documented Vital Signs
Temp Pulse Resp BP Pulse Ox
98.6 F 91 22 127/78 99
03/22/25 14:00 03/22/25 13:47 03/22/25 13:47 03/22/25 15:10 03/22/25 13:47
<Romeo Diaz MD - Last Filed: 03/22/25 13:17>
MDM/Problems Addressed
Differential Diagnosis Includes:
Gastritis, gastroparesis, enteritis, cholelithiasis, cholecystitis, bowel obstruction, pancreatitis
MDM/Problems Addressed:
54-year-old female returns to the ER for evaluation of abdominal pain with nausea as described above. She has a GI appointment tomorrow. Hypertensive but otherwise normal vitals. Physical exam as above. Will plan to check labs including a CBC
and a CMP. Check a lipase. Check an EKG. Will check repeat CT abdomen and pelvis. Provide fluids, pain control and antiemetic. Will monitor closely and reassess after the above.
<Romeo Diaz MD - Last Filed: 03/22/25 13:17>
*Pulse Oximetry
SaO2: 100
Oxygen Mode of Delivery: Room air
Patient hypoxic: no (100%)
*EKG
Interpreted by ED Provider?: Yes
Heart Rate: 79
Rate: normal
Rhythm: sinus
[place]: normal axis
Interval: normal interval
QRS Pattern: normal QRS
Ischemia: no ischemia
*Critical Care Note
Total Time (30-74mins, 75-104mins- exclusive of procedures): Not Applicable
Data Reviewed
Review of Other/Old Records Reveals: Labs and Radiology Studies
Source: patient, records and spouse
<Margi Cummins DO - Last Filed: 03/22/25 15:31>
Update Note
Update Note:
Attending Sign Out Note (Margi Cummins DO)
14:00 -assuming care of patient, 54-year-old female presenting for generalized abdominal pain with vomiting. Patient had similar symptoms back in January with reassuring workup, suspected gastroenteritis. Symptoms improved, however returned again
last week with increased pain, vomiting, decreased bowel movements. Seen in the hospital 2 days ago, again with suspicion for enteritis, given Zofran. She has an appoint with GI tomorrow. Return today with increasing pain. At time of signout,
unremarkable laboratory analysis, stable vital signs, with plan for CT abdominal imaging
15:30 -CT shows a small bowel obstruction. On reassessment, patient remains stable, resting comfortably. No present emesis. Patient made aware of CT findings. Plan for admission for surgical consultation, bowel rest
ED Attending Note
<Romeo Diaz MD - Last Filed: 03/22/25 13:17>
-
Portions of this chart may have been created with voice recognition software.� Occasional wrong word or��sound alike� substitutions may have occurred due to the inherent limitations of voice recognition software.
Discharge Plan
Departure
Prescriptions:
No Action
cetirizine 10 MG tablet
10 mg PO HS
acetaminophen [Tylenol Extra Strength] 500 MG tablet
1,000 mg PO Q6HPRN PRN (Reason: pain)
multivitamin Tablet
1 tab PO DAILY
ascorbic acid (vitamin C) [Vitamin C] 1,000 mg Tablet
1 g PO DAILY
ibuprofen 400 mg Tablet
400 mg PO Q6H PRN (Reason: pain)
cholecalciferol (vitamin D3) [Vitamin D3] 125 mcg (5,000 unit) Tablet
125 mcg PO DAILY
polyethylene glycol 3350 [Miralax] 17 gram/dose powder
4 g PO DAILY PRN (Reason: Constipation) Qty: 119 0RF
Rx Instructions:
start a laxative such as MIRALAX on day 2 after surgery if no bowel movement yet as long as no nausea/vomiting and passing gas
oxycodone 5 mg tablet
5 mg PO Q4HPRN PRN (Reason: breakthrough/severe pain) Qty: 15 0RF
ondansetron 4 mg Tablet,Disintegrating
4 mg PO TIDPRN PRN (Reason: nausea/vomiting) Qty: 12 0RF
Referrals:
Mragi Miller MD [Family Provider]
Interventions
Interventions:
*Risk Screen - Suicide Last Done: 03/22/25 11:08
*General Assessment Last Done: 03/22/25 13:29
*Neglect/Abuse Screening Last Done: 03/22/25 11:08
*ED- Fall Risk Assessment Last Done: 03/22/25 13:29
*ED COVID-19 Vaccine History Last Done: 03/22/25 13:29
RT-Lejrhg-Igunzgtuie Assessment Last Done: 03/22/25 13:29
Discharge Date and Time
Print Language: PASHTO
[2025-03-22] MEDS: NSS 1000 IV (13:38)
[2025-03-22] MEDS: MORPHINE SULFATE 4 MG IV (13:43)
[2025-03-22] MEDS: ZOFRAN 4 MG IV ×2 (13:43→23:19)
[2025-03-22 13:52] LABS: Urine Character Clear (Clear)
[2025-03-22 14:04] LABS: Urine White Cell 0-2 /HPF (0-5)
--- NOTE | 2025-03-22 16:55 | HPS.HSE ---
Addendum entered and electronically signed by Dilan Luque MD 03/22/25 17:55:
This is an addendum to the H&P written by Camila Newton on 03/22/2025. �Patient seen and examined independently with PA.
54-year-old female past medical history of incisional hernia repair earlier this year, fibroids status post total abdominal hysterectomy, abnormal uterine bleeding, obesity, asthma, presenting with abdominal pain 2 days ago with cramping and
vomiting. �Not eaten in several days. �Last bowel movement 2 to 3 days ago. �No fevers or chills.
Vital signs normal.
Labs unremarkable.
CT abdomen pelvis shows small bowel obstruction with transition point in lower abdomen.
Patient with small bowel obstruction. �N.p.o., IV fluids, Zofran, NG tube, general surgery consulted.
Original Note:
Family Physician
-
Family Physician: Margi Miller MD
Chief Complaint
-
Abdominal Pain
History of Present Illness
Patient is a 54 y/o female past medical history of asthma who presents with nausea, vomiting and abdominal pain. Patient describes crampy abdominal pain from the epigastric region down to the periumbilical region. She reports nausea, vomiting, and
reports inability to eat anything for the past few days. She reports some loose stools, but no formed bowel movements for the past 2-3 days. She denies fevers, sweats or chills.
Medical History
Past Medical History
Past Medical History: Reports Other
Additional Past Medical History:
Asthma
Depression
Past Surgical History: Reports Other
Additional Past Surgical History:
Hysterectomy
Incisional Hernia Repair
Social History
Tobacco: Smoker (1 PPD)
Family History
Family History: Not pertinent
Allergies / Home Medications
Allergies reflects when Allergies were last updated in [facility].
Home Medications with original date entered in [facility]
Allergy/Medication List:
Allergies
Allergy/AdvReac Type Severity Reaction Status Date / Time
grass pollen Allergy asthma Verified 03/22/25 11:11
Home Medications
ascorbic acid (vitamin C) 1,000 mg tablet (Vitamin C) 1 g PO DAILY 10/27/23
cholecalciferol (vitamin D3) 125 mcg (5,000 unit) tablet (Vitamin D3) 125 mcg PO DAILY 10/27/23
ibuprofen 400 mg tablet 400 mg PO Q6H PRN pain 10/27/23
multivitamin 1 tab PO DAILY 10/27/23
Review of Systems
-
A 12 point ROS was completed and negative except as noted: Yes
Constitutional: Denies Fever or Chills
Respiratory: Denies Cough or Trouble Breathing
Cardiac: Denies Chest Pain or Palpitations
Abdomen/GI: Reports See HPI
Physical Exam
Vital Signs
Vital Signs
Temp Pulse Resp BP Pulse Ox
98.6 F 91 22 127/78 99
03/22/25 14:00 03/22/25 13:47 03/22/25 13:47 03/22/25 15:10 03/22/25 13:47
Physical Exam
General: Comfortable and Conversant
HEENT: Anicteric and Moist mucous membranes
Respiratory: Clear and Non Labored Respirations
Cardiac: S1/S2 and Regular Rhythm
GI: Soft, Tender (Mild tenderness throughout) and Other (Hypoactive bowel sounds throughout)
Rectal: Deferred by Provider
Musculoskeletal: No Clubbing, No Cyanosis and No Edema
Skin: Warm and Dry
Neuro: Awake, Alert and Oriented
Laboratory Results
-
03/22/25 11:41
03/22/25 11:40
Laboratory Results
Total Bilirubin 0.7 mg/dl (0.2-1.3) 03/22/25 11:40
AST 27 U/L (14-36) 03/22/25 11:40
ALT 26 U/L (0-35) 03/22/25 11:40
Alkaline Phosphatase 59 U/L (38-126) 03/22/25 11:40
Lipase 53 U/L (23-300) 03/22/25 11:40
Abdomen / Pelvis CT:
Small bowel obstruction with a transition point in the lower abdomen.
Data Reviewed
-
CT Scan: Report Reviewed by me
Lab Data: Labs Reviewed by me
Impression/Plan
-
Small Bowel Obstruction
-Consult General Surgery
-Place NG Tube
-Continue NPO/IVFs
-Continue Zofran for Nausea
-Continue Morphine for pain
Tobacco Use Disorder
-Offered nicotine patch which patient declined
DVT proph: Lovenox
Code Status: Full Code
--- NOTE | 2025-03-22 17:52 | CON.GS ---
Consultation
-
Date/Time Consultation Performed: 03/22/25
Requesting Provider: Placido
Performing Provider: Robin
Reason for Consultation: pSBO
Medical History
-
Chief Complaint: Abd pain n/v
History of Present Illness:
54F with acute onset abd pain that began 2 days ago. Progressive, severe, crampy, a/w n/v. passing small flatus throughout and some liquid stools. Denies dietary indiscretion. Denies f/c. pain localized to lower abdomen without radiation. Similar
presentation a month ago dx'ed with gastorenteritis.
Past Medical History
Past Medical History: Reviewed & Noncontributory
Past Surgical History: Gynecological (hysterectomy for 7lb fibroid, lower midline incision) and Hernia Repair (VIHR eTEP RR 10/2023)
Social History
Tobacco: Smoker
Drug: None
Employment: Employed
Family History
Family History: Reviewed & Noncontributory
Allergies / Home Medications
Allergy/AdvReac Type Severity Reaction Status Date / Time
grass pollen Allergy asthma Verified 03/22/25 11:11
�Medication �Instructions �Recorded �Confirmed �Type
ascorbic acid (vitamin C) 1,000 mg 1 g PO DAILY 10/27/23 03/22/25 History
tablet (Vitamin C)
cholecalciferol (vitamin D3) 125 125 mcg PO DAILY 10/27/23 03/22/25 History
mcg (5,000 unit) tablet (Vitamin
D3)
ibuprofen 400 mg tablet 400 mg PO Q6H PRN pain 10/27/23 03/22/25 History
multivitamin 1 tab PO DAILY 10/27/23 03/22/25 History
Review of Systems
-
A 10 point review of systems was completed, and was negative except as per HPI.
Physical Exam
Vital Signs
Temp Pulse Resp BP Pulse Ox
98.6 F 91 22 137/100 99
03/22/25 14:00 03/22/25 13:47 03/22/25 13:47 03/22/25 16:00 03/22/25 13:47
03/21/25 03/22/25 03/23/25
06:59 06:59 06:59
Actual Weight 107 kg
Body Mass Index (BMI) 38.1
Lab Results
03/22/25 11:41
03/22/25 11:40
WBC 9.9 10^3/uL (4.8-10.8) 03/22/25 11:41
Hgb 14.8 g/dL (12.0-16.0) 03/22/25 11:41
Hct 44.2 % (37.0-47.0) 03/22/25 11:41
Plt Count 188 10^3/uL (130-400) D 03/22/25 11:41
Abs Immat Gran (auto) 0.0 10^3/uL (0-0.05) 03/22/25 11:41
Neutrophils % 74.8 % (42.2-75.2) 03/22/25 11:41
Physical Exam
General: Well Developed, Well Nourished and No Apparent Distress
GI: Soft, Tender (moderate ttp without guarding to LLQ and suprapubic area) and Distended (mild)
Skin: Warm and Dry
Neuro: AO x 3
Psych: Calm
Data Reviewed
-
CT Scan: Image Personally Visualized and interpreted, Report Reviewed by me, Discussed with Physician, Discussed with Patient and Discussed with Family
Labs: Labs Reviewed by me, Discussed with Physician, Discussed with Patient and Discussed with Family
Assessment / Plan
-
54F with pSBO likely 2/2 adhesions
AFVSS, ttp and mildly distended, passing small flatus and occasional liquid stool
No leukocytosis
CT with transition point in pelvis, dilated sb upstream from this and decompressed sb distal, no signs of bowel threat or compromise, colon relatively decompressed with some air and stool tracking to rectum
Plan:
Admit to Hospitalist
NPO/NGT
PRN pain meds, anti-emetics
lovenox and scds for ppx
If no improvement over next 24-48 hrs consider PO contrast study
Will follow
--- NOTE | 2025-03-22 18:39 | PTCARENOTE ---
Received pt into 401-2 from ED. Pt ambulatory to bed. NGT placed in R nare. Pt stating she 'can't take this', 'tell the doctor I want it out'. Dr. Luque and Robin made aware. stated pt able to take NGT out if she wishes. Passed information to
oncoming RN. Pt educated on importance and offered solutions to uncomfortable feeling, pt states understanding.
[2025-03-22] MEDS: D5/0.45%NSS with KCL 20 MEQ 1000 IV (19:38)
[2025-03-22] MEDS: LOVENOX 40 MG SC (19:39)
[2025-03-22] MEDS: TORADOL 10 MG IV (19:43)
--- NOTE | 2025-03-22 20:35 | PTCARENOTE ---
Rn technology coordinator- Admission assessment completed via phone interview.
[2025-03-22] MEDS: PROTONIX IV 40 MG IV (20:36)
[2025-03-22] MEDS: CHLORASEPTIC/SORE THROAT SPRAY 2 SPRAY PO ×2 (20:36→23:20)
[2025-03-22] MEDS: NSS (PRESERVATIVE FREE) 10 ML IV (20:36)
[2025-03-22] MEDS: HURRICAINE SPRAY 1 APPLIC TOPICAL (21:12)
[2025-03-23] MEDS: TORADOL 10 MG IV ×3 (02:22→20:17)
[2025-03-23] MEDS: CHLORASEPTIC/SORE THROAT SPRAY 2 SPRAY PO (02:26)
[2025-03-23] MEDS: D5/0.45%NSS with KCL 20 MEQ 1000 IV ×2 (04:26→12:33)
[2025-03-23 05:45] VITALS: BP 142/85
[2025-03-23] MEDS: MORPHINE SULFATE 4 MG IV (05:50)
--- NOTE | 2025-03-23 06:00 | PTCARENOTE ---
Received pt from previous shift. Pt very upset and tearful about NGT discomfort. [facility], at 19:15 for throat numbing spray. Chloraseptic spray ordered and administered. Pt also reporting heart burn. Orders
received for a one time dose of IV protonix. Mary Beth came to floor to see pt, review CXR, and confirm placement of NGT. NGT currently at 45cm in L nare to LIWS with scant output. Pt continued to struggle with throat discomfort throughout the night.
One time order for Hurricaine spray received. Abdominal and throat pain managed with PRN IV toradol. At around 05:30, pt reported bad heart burn again, but is not due to receive anything, per Mary Beth. Pt stated that the NGT 'is not working for me, I
kept it in all night and now I want it out'. Emotional support provided to patient. Encouraged patient to try and wait for the doctors to do their morning rounds today. PRN IV morphine given for pain management.
[2025-03-23 07:48] VITALS: BP 139/75
[2025-03-23 08:15] LABS: Hematocrit 40.2 % (37.0-47.0); Hemoglobin 13.6 g/dL (12.0-16.0); Mean Corp Hgb Conc. 33.8 g/dL (33.0-37.0); Mean Corpuscular Volume 91.0 fL (81.0-99.0); Platelet Count 173 10^3/uL (130-400); Red Cell Dist. Width 12.8 % (11.5-14.5)
[2025-03-23 08:16] LABS: Blood Urea Nitrogen 11 mg/dl (7-17); Calcium 8.6 mg/dl (8.4-10.2); Carbon Dioxide 27 mmol/L (22-30); Chloride 105 mmol/L (98-107); Estimated Creatinine Clearance 117 ml/min; Glucose 114 mg/dl (70-99); Potassium 4.3 mmol/L (3.5-5.1); Sodium 136 mmol/L (135-145); eGFR > 60.00
[2025-03-23] MEDS: PROTONIX IV 40 MG IV (09:02)
[2025-03-23] MEDS: NSS (PRESERVATIVE FREE) 10 ML IV (09:02)
--- NOTE | 2025-03-23 09:54 | PTCARENOTE ---
NGT removed by surgery.
--- NOTE | 2025-03-23 10:44 | W.PN.HOSP.TC ---
Today's Communication/Plan
-
N.p.o. IV fluids. Surgery eval
Assessment / Plan
Assessment / Plan
Physical exam:
General: Well Developed, Well Nourished and No Apparent Distress
HEENT: Normocephalic, Atraumatic and Moist Mucous Membranes
Respiratory: Clear to Auscultation; Negative Wheezes, Rales or Rhonchi
Cardiac: Regular Rhythm and S1/S2
GI: Soft, Nontender and Nondistended; bowel sounds hypoactive
Musculoskeletal: No Clubbing, No Cyanosis and No Edema
Neuro: Awake, Alert and Oriented
Psych: Calm
A/P:
Small Bowel Obstruction
-Consult General Surgery appreciated
-Continue NPO/IVFs
-Continue Zofran for Nausea
-Continue Morphine for pain
- Plan for small bowel follow-through
Tobacco Use Disorder
-Offered nicotine patch which patient declined
DVT proph: Lovenox
Code Status: Full Code
Time spent 35 minutes
Anticipated Discharge: > 48 hours
Subjective/Interval History
-
Date of Service: March 23, 2025
Patient has not passed any bowel gases or any bowel movements. No nausea or vomiting. No fever
Objective Data
-
Labs:
Laboratory Results
03/23/25
06:20
WBC 6.2
Hgb 13.6
Hct 40.2
Plt Count 173
Sodium 136
Potassium 4.3
Chloride 105
Carbon Dioxide 27
BUN 11
Creatinine 0.7
Glucose 114 H
Calcium 8.6
Vital Signs:
Vital Signs
Temp Pulse Resp BP Pulse Ox
97.9 F 69 18 139/75 97
03/23/25 07:48 03/23/25 07:48 03/23/25 07:48 03/23/25 07:48 03/23/25 07:48
I&O
03/22/25 03/23/25 03/24/25
06:59 06:59 06:59
Intake Total 1500 / 1500
Balance 1500 / 1500
--- NOTE | 2025-03-23 11:00 | W.PN.GS2 ---
Addendum entered and electronically signed by Lars Yu MD 03/23/25 11:17:
Patient seen and examined with surgical BIOINFORMATICS TECHNICIAN. Agree with documented progress note with additions noted here.
Patient reports some mild abdominal discomfort but improved from presenting symptoms. She has passed flatus but no bowel movement. NG tube making her gag.
AFVSS
ABD: Soft, not tensely distended, mild tenderness on palpation lower abdomen. No rebound rigidity or guarding.
NG tube with saliva like fluid in canister, no gastric contents; reviewed chest x-ray demonstrating NG tube in the esophagus
Given that the NG tube has not had much function due to esophageal location and the patient has not had any nausea or vomiting we removed the NG tube at bedside during rounds.
Assessment/plan: 54-year-old female with probable adhesive related PSBO
Difficult to determine degree of partial obstruction on clinical signs alone and prior noncontrast CT imaging
Will obtain small bowel follow-through for better assessment
Original Note:
Today's Communication / Plan
-
SBFT study
NPO/IVF
Assessment / Plan
-
54F with h/o VIHR eTEP RR 10/2023 ([facility]), CHAD/BSO/Omentectomy for endometrial CA 2020 ([facility]) presents with pSBO likely 2/2 adhesions
CXR with malpositioned NGT in the esophagus; removed at bedside
AFVSS
Labs unremarkable
Plan:
Check SBFT
Continue NPO pending imaging
Continue IVF
PRN pain meds, anti-emetics
lovenox and scds for ppx
Subjective Data
-
Date of Service: March 23, 2025
Pt seen and examined at bedside with Dr. Yu. Denies n/v. Not yet passing flatus or stools. Reports heartburn and gagging sensation with NGT. Some mild discomfort to lower abd/pelvis
Objective Data
-
Intake and Output
03/22/25 03/23/25 03/24/25
06:59 06:59 06:59
Intake Total 1500 / 1500
Balance 1500 / 1500
Intake:
IV fluids (Total) 1500 / 1500
Other:
Number of approximated MODERATE 2
amounts of urine
Vital Signs
Temp Pulse Resp BP Pulse Ox
97.9 F 69 18 139/75 97
03/23/25 07:48 03/23/25 07:48 03/23/25 07:48 03/23/25 07:48 03/23/25 07:48
Lab Results
03/23/25 06:20
03/23/25 06:20
Calcium 8.6 mg/dl (8.4-10.2) 03/23/25 06:20
Total Bilirubin 0.7 mg/dl (0.2-1.3) 03/22/25 11:40
AST 27 U/L (14-36) 03/22/25 11:40
ALT 26 U/L (0-35) 03/22/25 11:40
Alkaline Phosphatase 59 U/L (38-126) 03/22/25 11:40
Total Protein 7.2 g/dl (6.3-8.2) 03/22/25 11:40
Albumin 4.6 g/dl (3.5-5.0) 03/22/25 11:40
Physical Exam
-
NAD
ABD softly distended, mild left pelvic tenderness
NGT with clear secretions
[2025-03-23 13:33] VITALS: BMI 41.9
--- NOTE | 2025-03-23 15:29 | CM ---
Alert awake oriented patient who lives with her in a 2 story home with 9 steps to enter and 7 steps to bed/bathroom. She is independent in activates of daily living.She does drive .She uses no adaptive devices.Offered VN but declined.
No VN in past . No SNF hx
Pharmacy [facility]
PCP Dr Miller
PLAN Home with no needs
[2025-03-23 15:47] VITALS: BP 169/84
[2025-03-23] MEDS: LOVENOX SC ×2 (17:23→18:09)
[2025-03-23] MEDS: ZOFRAN 4 MG IV (17:23)
--- NOTE | 2025-03-23 17:54 | W.PN.SURGUPD ---
Surgical Update
Surgical Update
pt seen in followup. SBFT reviewed. contrast does not opacify colon/distal SB within initial timing of images
pt has had worsening abdominal pain and vomited with SBFT
placed NGT for decompression (tape secured at 65cm maxime) - ~300 bilious contents removed on placement
discussed with pt SBFT results suggestive of persistent SBO
will decompress overnight
follow up abd xray this evening and tomorrow AM to see if there is any progression of oral contrast
we reviewed potential recommendation for surgery if continued persistent obstructive symptoms
--- NOTE | 2025-03-23 17:59 | PTCARENOTE ---
NG tube inserted at [address] Yu at bedside.
[2025-03-23] MEDS: DILAUDID 0.5 MG IV (18:09)
[2025-03-23 23:37] VITALS: BP 128/80
[2025-03-23] MEDS: D5/0.45%NSS with KCL 20 MEQ IV (23:52)
[2025-03-24] VITALS (8 sets, daily range): BP systolic 109–125; BP diastolic 60–78; BMI 38.5
[2025-03-24] MEDS: DILAUDID 0.5 MG IV ×2 (00:12→20:02)
[2025-03-24] MEDS: D5/0.45%NSS with KCL 20 MEQ 1000 IV ×3 (00:12→20:47)
[2025-03-24] MEDS: COMPAZINE 10 MG IV (01:25)
[2025-03-24] MEDS: NSS (PRESERVATIVE FREE) 10 ML IV (07:43)
[2025-03-24] MEDS: PROTONIX IV 40 MG IV (07:43)
[2025-03-24 08:55] LABS: Hematocrit 39.0 % (37.0-47.0); Hemoglobin 13.2 g/dL (12.0-16.0); Mean Corp Hgb Conc. 33.8 g/dL (33.0-37.0); Mean Corpuscular Volume 91.1 fL (81.0-99.0); Platelet Count 166 10^3/uL (130-400); Red Cell Dist. Width 12.6 % (11.5-14.5)
[2025-03-24 09:22] LABS: Blood Urea Nitrogen 15 mg/dl (7-17); Calcium 8.8 mg/dl (8.4-10.2); Carbon Dioxide 28 mmol/L (22-30); Chloride 104 mmol/L (98-107); Estimated Creatinine Clearance 102 ml/min; Glucose 130 mg/dl (70-99); Potassium 4.6 mmol/L (3.5-5.1); Sodium 138 mmol/L (135-145); eGFR > 60.00
[2025-03-24] MEDS: D5/0.45%NSS with KCL 20 MEQ IV (10:42)
--- NOTE | 2025-03-24 10:43 | W.PN.HOSP.TC ---
Today's Communication/Plan
-
N.p.o. IV fluids NG tube
Assessment / Plan
Assessment / Plan
Physical exam:
General: Well Developed, Well Nourished and No Apparent Distress
HEENT: Normocephalic, Atraumatic and Moist Mucous Membranes
Respiratory: Clear to Auscultation; Negative Wheezes, Rales or Rhonchi
Cardiac: Regular Rhythm and S1/S2
GI: Soft, Nontender and Nondistended; bowel sounds hypoactive
Musculoskeletal: No Clubbing, No Cyanosis and No Edema
Neuro: Awake, Alert and Oriented
Psych: Calm
A/P:
Small Bowel Obstruction
Small bowel through with persistent obstruction yesterday
Follow-up x-ray of the abdomen today shows residual small bowel distention versus persistent SBO
Continue n.p.o. and NG tube
IV fluid
Surgery consult and follow-up appreciated
Plan for possible going to the OR if surgery feels needed today
Tobacco Use Disorder
-Offered nicotine patch which patient declined
DVT proph: Lovenox
Code Status: Full Code
Time spent 37 minutes
Anticipated Discharge: > 48 hours
Subjective/Interval History
-
Date of Service: March 24, 2025
Patient with abdominal discomfort and NG tube in place. She did have small bowel movement-watery stool today.
Objective Data
-
Labs:
Laboratory Results
03/24/25
07:55
WBC 5.7
Hgb 13.2
Hct 39.0
Plt Count 166
Sodium 138
Potassium 4.6
Chloride 104
Carbon Dioxide 28
BUN 15
Creatinine 0.8
Glucose 130 H
Calcium 8.8
Vital Signs:
Vital Signs
Temp Pulse Resp BP Pulse Ox
97.7 F 73 12 124/78 94
03/24/25 07:00 03/24/25 07:00 03/24/25 07:00 03/24/25 07:00 03/24/25 07:00
I&O
03/23/25 03/24/25 03/25/25
06:59 06:59 06:59
Intake Total 3000 / 3000
Output Total 1400 / 1400
Balance 1600 / 1600
--- NOTE | 2025-03-24 14:32 | CM ---
Chart reviewed. Pt for SBO surgery today. Will follow for discharge needs.
Plan: Pending outcome of SBO surgery
--- NOTE | 2025-03-24 14:52 | W.PN.GS2 ---
Today's Communication / Plan
-
`
Assessment / Plan
-
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
Small bowel follow-through yesterday with high-grade or complete obstruction
Subsequent x-ray yesterday evening still without progression of oral contrast
NG tube drained 1200 mL overnight of bilious contents
X-ray this morning with contrast now into the colon, she had a bowel movement shortly before and again after this imaging study
Detailed discussions with patient and her regarding treatment options. Given movement of contrast this is a partial obstruction but there is still a significant small bowel distention and she feels overall bloating and distention as well.
We reviewed treatment options which would include continued conservative management with NG tube decompression and consideration of p.o. challenge versus going ahead with surgical intervention. Given that this is the second episode with a similar
transition point on imaging within the past month and the fact that the NG tube has had to already be replaced once during this hospital stay due to recurrent obstructive symptoms after small bowel follow-through study patient advises that she is
comfortable with/in agreement with proceeding with surgery in an effort to reduce future risk of recurrence of similar obstruction site.
The anticipated operative procedure of a laparoscopic assisted, possible open lysis of adhesions, possible bowel resection was reviewed in detail including the operative technique, potential operative findings and their management. We discussed
alternative nonoperative treatment options. We discussed the risks and benefits of various approaches and specifically also discussed surgical risk such as bleeding, infectious and wound related complications, and iatrogenic injury to surrounding
viscera. We discussed the typical postoperative recovery pending operative findings.
Plan: To the OR for procedure as outlined above
Subjective Data
-
Date of Service: March 24, 2025
Patient seen and examined earlier in the day with her at bedside.
NG tube is uncomfortable but she is tolerating it well.
Started passing loose stools this morning. 3 episodes.
Still feels a bit distended/bloated
No nausea.
Objective Data
-
Intake and Output
03/23/25 03/24/25 03/25/25
06:59 06:59 06:59
Intake Total 3000 / 3000
Output Total 1400 / 1400
Balance 1600 / 1600
Intake:
IV fluids (Total) 3000 / 3000
Output:
Gastrointestinal tube output ( 1400 / 1400
Total)
[place] Sump 1400 / 1400
Other:
Number of approximated MODERATE 2 1
amounts of urine
Vital Signs
Temp Pulse Resp BP Pulse Ox
97.7 F 73 12 124/78 94
03/24/25 07:00 03/24/25 07:00 03/24/25 07:00 03/24/25 07:00 03/24/25 07:00
Lab Results
03/24/25 07:55
03/24/25 07:55
Calcium 8.8 mg/dl (8.4-10.2) 03/24/25 07:55
Total Bilirubin 0.7 mg/dl (0.2-1.3) 03/22/25 11:40
AST 27 U/L (14-36) 03/22/25 11:40
ALT 26 U/L (0-35) 03/22/25 11:40
Alkaline Phosphatase 59 U/L (38-126) 03/22/25 11:40
Total Protein 7.2 g/dl (6.3-8.2) 03/22/25 11:40
Albumin 4.6 g/dl (3.5-5.0) 03/22/25 11:40
Physical Exam
-
NAD AAO x 3
ABD: Softly distended, mild generalized tenderness. No rebound rigidity or guarding.
NG tube with light gastric contents within tubing line. Dark bile in canister
--- NOTE | 2025-03-24 19:36 | W.IMMPOSTOP ---
Addendum entered and electronically signed by Lars Yu MD 03/27/25 15:13:
#[id number]
Original Note:
Surgical Immed Post Op Note
-
Primary Surgeon: Lars Yu MD
Assisting Surgeon: Rufina Barrera PA-C
Eliane Gutierrez
Pre-op Diagnosis: Small bowel obstruction
Post-op Diagnosis: High-grade partial small bowel obstruction secondary to adhesions
Procedure Performed: Laparoscopic converted to open lysis of adhesions (extensive/complete enterolysis from ligament of Treitz to terminal ileum)
Anesthesia Type: GETA +0.25% Marcaine with epi
Specimen / Cultures: None
Estimated Blood Loss: 50 mL
Complications: None immediate
Operative Findings: Numerous distal small bowel adhesions within the pelvis and a dense nest of chronic mid ileal small bowel adhesions to the left pelvic brim and sigmoid colon mesentery as well as predominantly dense interloop adhesions with
resultant high-grade partial small bowel obstruction. Transition point clearly demarcated within interloop ileal adhesions. Complete enterolysis performed. No enterotomy. 2 superficial serosal tears oversewn with 3-0 PDS in Lembert fashion.
The assistance of Rufina Barrera PA-C was required due to the complexity of the procedure. During the procedure is a Bruce CRISTOBAL assisted with retraction and closure of the surgical sites. I was present for the entirety of the operative procedure
through skin closure.
Patient's updated postoperatively via phone call
[2025-03-24] MEDS: LOVENOX SC (22:29)
[2025-03-25] MEDS: OFIRMEV 100 IV ×5 (00:29→23:41)
[2025-03-25 03:00] VITALS: BP 122/73
[2025-03-25] MEDS: DILAUDID 0.5 MG IV (03:45)
[2025-03-25 04:17] VITALS: BMI 38.3
[2025-03-25 06:00] VITALS: BMI 38.3
[2025-03-25] MEDS: D5/0.45%NSS with KCL 20 MEQ 1000 IV ×2 (06:18→15:53)
[2025-03-25 07:25] VITALS: BP 137/81
[2025-03-25] MEDS: TORADOL 10 MG IV ×3 (08:23→23:41)
[2025-03-25] MEDS: PROTONIX IV 40 MG IV (08:26)
[2025-03-25] MEDS: NSS (PRESERVATIVE FREE) 10 ML IV (08:26)
--- NOTE | 2025-03-25 08:51 | W.PN.HOSP.TC ---
Today's Communication/Plan
-
N.p.o. IV fluids NG tube
Assessment / Plan
Assessment / Plan
Physical exam:
General: Acutely ill
HEENT: Normocephalic, Atraumatic and dry mucous Membranes. NGT in place
Respiratory: Clear to Auscultation; Negative Wheezes, Rales or Rhonchi
Cardiac: Regular Rhythm and S1/S2
GI: Soft, tender and Nondistended; postop findings
Musculoskeletal: No Clubbing, No Cyanosis and No Edema
Neuro: Awake, Alert and Oriented, no neurological deficit
Psych: Calm
A/P:
Small Bowel Obstruction:
Status post laparoscopic converted to open lysis of adhesions on 03/24
Continue n.p.o. IV fluids and NG tube
Surgery consult appreciated and follow-up further recommendations
Awaiting ROBF
Tobacco Use Disorder
-Offered nicotine patch which patient declined
DVT proph: Lovenox
Code Status: Full Code
Time spent 35 minutes
Anticipated Discharge: > 48 hours
Subjective/Interval History
-
Date of Service: March 25, 2025
Patient has postop soreness. NG tube in place. No chest pain or shortness of breath
Objective Data
-
Labs:
Laboratory Results
03/25/25
07:49
WBC Pending
Hgb Pending
Hct Pending
Plt Count Pending
Sodium Pending
Potassium Pending
Chloride Pending
Carbon Dioxide Pending
BUN Pending
Creatinine Pending
Glucose Pending
Calcium Pending
Vital Signs:
Vital Signs
Temp Pulse Resp BP Pulse Ox
98.6 F 82 16 137/81 95
03/25/25 07:25 03/25/25 07:25 03/25/25 07:25 03/25/25 07:25 03/25/25 07:25
I&O
03/24/25 03/25/25 03/26/25
06:59 06:59 06:59
Intake Total 3000 / 3000 3300 / 3300
Output Total 1400 / 1400 1400 / 1400
Balance 1600 / 1600 1900 / 1900
[2025-03-25 09:06] LABS: Hematocrit 41.9 % (37.0-47.0); Hemoglobin 14.1 g/dL (12.0-16.0); Mean Corp Hgb Conc. 33.7 g/dL (33.0-37.0); Mean Corpuscular Volume 90.3 fL (81.0-99.0); Nucleated Red Blood Cells % 0 %; Platelet Count 156 10^3/uL (130-400); Red Cell Dist. Width 12.5 % (11.5-14.5)
[2025-03-25 10:03] LABS: Blood Urea Nitrogen 8 mg/dl (7-17); Calcium 8.0 mg/dl (8.4-10.2); Carbon Dioxide 30 mmol/L (22-30); Chloride 101 mmol/L (98-107); Estimated Creatinine Clearance > 125 ml/min; Glucose 120 mg/dl (70-99); Potassium 4.4 mmol/L (3.5-5.1); Sodium 135 mmol/L (135-145); eGFR > 60.00
[2025-03-25 11:20] VITALS: BP 131/73
--- NOTE | 2025-03-25 14:38 | W.PN.GS2 ---
Addendum entered and electronically signed by Samir Kelly MD 03/25/25 16:13:
I saw and examined the patient.
The [employer] Operator's note was reviewed and I agree with the note.
Comment: pain controlled, no flatus yet, NGT functioning, exam approp, aquacel dressing OK, plan for NPO/NGT/IVF, expect ileus, tentatively for PICC/TPN tomorrow
Original Note:
Today's Communication / Plan
-
NGT/NPO/IVF
Assessment / Plan
-
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
POD #1 lap to open lysis of adhesions
AFVSS
NGT with bilious outputs, await bowel recovery
Labs stable
Plan:
Continue NGT to LIWS
NPO x ice chips for comfort
c/w IVF
C/W schedule ofirmev, prn dilaudid/toradol
PPI for GI ppx
Lovenox and SCDs for VTE ppx
OOB/Ambulate as able
Subjective Data
-
Date of Service: March 25, 2025
Pt seen and examined at bedside with Dr. Kelly. Denies nausea. Not yet passing flatus. Sore post op but manageable.
Objective Data
-
Intake and Output
03/24/25 03/25/25 03/26/25
06:59 06:59 06:59
Intake Total 3000 / 3000 3300 / 3300
Output Total 1400 / 1400 1400 / 1400 450 / 450
Balance 1600 / 1600 1900 / 1900 -450 / -450
Intake:
Oral fluids 240 / 240
IV fluids (Total) 3000 / 3000 2740 / 2740
IV piggybacks 200 / 200
Amount instilled into GI Tube ( 120 / 120
Total)
[place] Sump 120 / 120
Output:
Gastrointestinal tube output ( 1400 / 1400 700 / 700
Total)
[place] Sump 1400 / 1400 700 / 700
Urine, Cxo 700 / 700 450 / 450
Other:
Number of approximated MODERATE 2 1
amounts of urine
Vital Signs
Temp Pulse Resp BP Pulse Ox
98.3 F 94 16 131/73 95
03/25/25 11:20 03/25/25 11:20 03/25/25 11:20 03/25/25 11:20 03/25/25 11:20
Lab Results
03/25/25 07:49
03/25/25 07:49
Calcium 8.0 mg/dl (8.4-10.2) L 03/25/25 07:49
Total Bilirubin 0.7 mg/dl (0.2-1.3) 03/22/25 11:40
AST 27 U/L (14-36) 03/22/25 11:40
ALT 26 U/L (0-35) 03/22/25 11:40
Alkaline Phosphatase 59 U/L (38-126) 03/22/25 11:40
Total Protein 7.2 g/dl (6.3-8.2) 03/22/25 11:40
Albumin 4.6 g/dl (3.5-5.0) 03/22/25 11:40
Physical Exam
-
NAD
ABD soft, nd, tenderness near incision
Midline incision with intact dressing
[2025-03-25 15:20] VITALS: BP 129/73
[2025-03-25 23:04] VITALS: BP 140/77
[2025-03-26] MEDS: D5/0.45%NSS with KCL 20 MEQ 1000 IV ×4 (00:49→22:46)
[2025-03-26 06:15] VITALS: BMI 38.7
[2025-03-26] MEDS: OFIRMEV 100 IV ×4 (06:19→23:25)
[2025-03-26 07:20] VITALS: BP 151/86
[2025-03-26 07:50] LABS: Hematocrit 38.3 % (37.0-47.0); Hemoglobin 13.0 g/dL (12.0-16.0); Mean Corp Hgb Conc. 33.9 g/dL (33.0-37.0); Mean Corpuscular Volume 90.3 fL (81.0-99.0); Platelet Count 157 10^3/uL (130-400); Red Cell Dist. Width 12.8 % (11.5-14.5)
[2025-03-26 08:23] LABS: ALT (SGPT) 46 U/L (0-35); AST (SGOT) 26 U/L (14-36); Albumin 3.1 g/dl (3.5-5.0); Alkaline Phosphatase 55 U/L (38-126); Blood Urea Nitrogen 6 mg/dl (7-17); Calcium 8.3 mg/dl (8.4-10.2); Carbon Dioxide 28 mmol/L (22-30); Chloride 104 mmol/L (98-107); Estimated Creatinine Clearance 112 ml/min; Glucose 110 mg/dl (70-99); Magnesium 1.8 mg/dl (1.6-2.3); Potassium 4.2 mmol/L (3.5-5.1); Sodium 135 mmol/L (135-145); Total Protein 5.6 g/dl (6.3-8.2); Triglycerides 99 mg/dl (10-149); eGFR > 60.00
[2025-03-26 08:28] LABS: Prealbumin (Transthyretin) 11.4 mg/dl (17.6-36.0)
[2025-03-26] MEDS: NSS (PRESERVATIVE FREE) 10 ML IV (08:47)
[2025-03-26] MEDS: TORADOL 10 MG IV (08:47)
[2025-03-26] MEDS: PROTONIX IV 40 MG IV (08:47)
--- NOTE | 2025-03-26 12:40 | W.PN.HOSP.TC ---
Today's Communication/Plan
-
N.p.o. IV fluids NG tube
Assessment / Plan
Assessment / Plan
Physical exam:
General: Acutely ill
HEENT: Normocephalic, Atraumatic and dry mucous Membranes. NGT in place
Respiratory: Clear to Auscultation; Negative Wheezes, Rales or Rhonchi
Cardiac: Regular Rhythm and S1/S2
GI: Soft, tender and Nondistended; postop findings and mild bloody discharge on dressing. Very hypoactive bowel sounds.
Musculoskeletal: No Clubbing, No Cyanosis and No Edema
Neuro: Awake, Alert and Oriented, no neurological deficit
Psych: Calm
A/P:
Small Bowel Obstruction:
Status post laparoscopic converted to open lysis of adhesions on 03/24
Continue n.p.o. IV fluids and NG tube
Surgery consult appreciated and follow-up further recommendations
Discussed with at bedside
Awaiting ROBF
Tobacco Use Disorder
-Offered nicotine patch which patient declined
DVT proph: Lovenox
Code Status: Full Code
Time spent 35 minutes
Anticipated Discharge: > 48 hours
Subjective/Interval History
-
Date of Service: March 26, 2025
Patient passing gases today. No bowel movement. Mild abdominal postop discomfort. No chest pain or shortness of breath.
Objective Data
-
Labs:
Laboratory Results
03/26/25
06:56
WBC 7.6
Hgb 13.0
Hct 38.3
Plt Count 157
Sodium 135
Potassium 4.2
Chloride 104
Carbon Dioxide 28
BUN 6 L
Creatinine 0.7
Glucose 110 H
Calcium 8.3 L
Total Bilirubin 1.0
AST 26
ALT 46 H
Alkaline Phosphatase 55
Vital Signs:
Vital Signs
Temp Pulse Resp BP Pulse Ox
98.1 F 86 16 151/86 93
03/26/25 07:20 03/26/25 07:20 03/26/25 07:20 03/26/25 07:20 03/26/25 07:20
I&O
03/25/25 03/26/25 03/27/25
06:59 06:59 06:59
Intake Total 3300 / 3300 1999 / 1999
Output Total 1400 / 1400 1725 / 1725 175 / 175
Balance 1900 / 1900 275 / 275 -175 / -175
--- NOTE | 2025-03-26 14:03 | W.PN.GS2 ---
Addendum entered and electronically signed by Samir Kelly MD 03/26/25 18:16:
I saw and examined the patient.
The Process Eng's note was reviewed and I agree with the note.
Comment: Passing flatus, pain controlled, belly soft, incision cdi, plan for clamp trial today
Original Note:
Today's Communication / Plan
-
NGT clamp trial
Assessment / Plan
-
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
POD #2 lap to open lysis of adhesions
AFVSS
NGT outptus lessened, passing flatus
Labs stable
Plan:
NGT clamp trial, will remove if tolerates/low residual and start cld
NPO x ice chips for comfort
c/w IVF
C/W schedule ofirmev, prn dilaudid/toradol
PPI for GI ppx
Lovenox and SCDs for VTE ppx
OOB/Ambulate as able
Subjective Data
-
Date of Service: March 26, 2025
Pt seen and examined at bedside with Dr. Kelly. Denies n/v. Tolerating NGT clamping thus far. Passing a good amount of flatus. Reports she has been walking in the halls. Post op discomfort improving but still present.
Objective Data
-
Intake and Output
03/25/25 03/26/25 03/27/25
06:59 06:59 06:59
Intake Total 3300 / 3300 2000 / 2000
Output Total 1400 / 1400 1725 / 1725 175 / 175
Balance 1900 / 1900 275 / 275 -175 / -175
Intake:
Oral fluids 240 / 240 300 / 300
IV fluids (Total) 2740 / 2740 1500 / 1500
IV piggybacks 200 / 200 200 / 200
Amount instilled into GI Tube ( 120 / 120
Total)
[place] Sump 120 / 120
Output:
Gastrointestinal tube output ( 700 / 700 500 / 500
Total)
[place] Sump 700 / 700 500 / 500
Urine, Cox 700 / 700 1225 / 1225
Urine, Voided 175 / 175
Other:
Number of approximated MODERATE 1
amounts of urine
Vital Signs
Temp Pulse Resp BP Pulse Ox
98.1 F 86 16 151/86 93
03/26/25 07:20 03/26/25 07:20 03/26/25 07:20 03/26/25 07:20 03/26/25 07:20
Lab Results
03/26/25 06:56
03/26/25 06:56
Calcium 8.3 mg/dl (8.4-10.2) L 03/26/25 06:56
Phosphorus 3.1 mg/dl (2.5-4.5) 03/26/25 06:56
Magnesium 1.8 mg/dl (1.6-2.3) 03/26/25 06:56
Total Bilirubin 1.0 mg/dl (0.2-1.3) 03/26/25 06:56
AST 26 U/L (14-36) 03/26/25 06:56
ALT 46 U/L (0-35) H 03/26/25 06:56
Alkaline Phosphatase 55 U/L (38-126) 03/26/25 06:56
Total Protein 5.6 g/dl (6.3-8.2) L 03/26/25 06:56
Albumin 3.1 g/dl (3.5-5.0) L 03/26/25 06:56
Physical Exam
-
NAD
ABD soft, nd, tenderness near incision
NGT with bilious outputs, lower than before
Midline incision with intact dressing
[2025-03-26 15:25] VITALS: BP 149/92
[2025-03-26 20:20] VITALS: BP 144/82
[2025-03-27 03:20] VITALS: BP 139/82
[2025-03-27] MEDS: D5/0.45%NSS with KCL 20 MEQ 1000 IV ×2 (05:05→21:54)
[2025-03-27 06:44] VITALS: BMI 38.4
[2025-03-27 07:33] LABS: Hematocrit 37.9 % (37.0-47.0); Hemoglobin 12.8 g/dL (12.0-16.0); Mean Corp Hgb Conc. 33.8 g/dL (33.0-37.0); Mean Corpuscular Volume 90.9 fL (81.0-99.0); Platelet Count 176 10^3/uL (130-400); Red Cell Dist. Width 12.5 % (11.5-14.5)
[2025-03-27 07:35] VITALS: BP 155/82
[2025-03-27] MEDS: PROTONIX IV 40 MG IV (07:57)
[2025-03-27] MEDS: NSS (PRESERVATIVE FREE) 10 ML IV (07:58)
[2025-03-27 08:02] LABS: Blood Urea Nitrogen 5 mg/dl (7-17); Calcium 8.8 mg/dl (8.4-10.2); Carbon Dioxide 27 mmol/L (22-30); Chloride 105 mmol/L (98-107); Estimated Creatinine Clearance > 125 ml/min; Glucose 90 mg/dl (70-99); Potassium 4.2 mmol/L (3.5-5.1); Sodium 137 mmol/L (135-145); eGFR > 60.00
--- NOTE | 2025-03-27 08:02 | W.PN.HOSP.TC ---
Today's Communication/Plan
-
IVF support
diet as per surgery
pain control
Assessment / Plan
Assessment / Plan
Physical exam:
General: Acutely ill
HEENT: Normocephalic, Atraumatic and dry mucous Membranes. NGT in place
Respiratory: Clear to Auscultation; Negative Wheezes, Rales or Rhonchi
Cardiac: Regular Rhythm and S1/S2
GI: Soft, tender and Nondistended; postop findings and mild bloody discharge on dressing. Very hypoactive bowel sounds.
Musculoskeletal: No Clubbing, No Cyanosis and No Edema
Neuro: Awake, Alert and Oriented, no neurological deficit
Psych: Calm
A/P:
Small Bowel Obstruction:
Status post laparoscopic converted to open lysis of adhesions on 03/24
NGT completed
IVF support
Surgery consult appreciated cont clear liquid diet
simethicone prn gas discomfort
Tobacco Use Disorder
-Offered nicotine patch which patient declined
DVT proph: Lovenox
Code Status: Full Code
I spent a total of 35 minutes with the patient or on the floor. More than 50% of this time involved counseling and coordination of care.
Anticipated Discharge: 24 - 48 hours
Subjective/Interval History
-
Date of Service: March 27, 2025
no acute distress, reports gas discomfort this morning, improved with prn simethicone. Tolerating clear liquid diet so far.
Objective Data
-
Labs:
Laboratory Results
03/27/25
06:36
WBC 8.8
Hgb 12.8
Hct 37.9
Plt Count 176
Sodium Pending
Potassium Pending
Chloride Pending
Carbon Dioxide Pending
BUN Pending
Creatinine Pending
Glucose Pending
Calcium Pending
Vital Signs:
Vital Signs
Temp Pulse Resp BP Pulse Ox
98.4 F 77 16 139/82 96
03/27/25 03:20 03/27/25 03:20 03/27/25 03:20 03/27/25 03:20 03/27/25 03:20
I&O
03/26/25 03/27/25 03/28/25
06:59 06:59 06:59
Intake Total 1999 / 1999 990 / 990
Output Total 1725 / 1725 325 / 325
Balance 275 / 275 665 / 665
[2025-03-27] MEDS: MYLICON 80 MG PO ×2 (08:48→18:47)
--- NOTE | 2025-03-27 09:29 | CM ---
Patient seen at bedside, on . Patient states she is just feeling sorry for herself today. Patient plan is for discharge home with no needs at this time. CM will continue to follow for discharge planning needs.
Plan; home with no needs; watch for any VN needs
[2025-03-27] MEDS: OFIRMEV 100 IV ×3 (10:03→21:48)
--- NOTE | 2025-03-27 11:17 | W.PN.GS2 ---
Today's Communication / Plan
-
Clears
Assessment / Plan
-
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
POD #3 lap to open lysis of adhesions
AFVSS
Passing flatus and liquid stools, but with discomfort/bloating after clear liquid tray
Labs stable
Plan:
Continue CLD
c/w IVF, decreased rate now that she is taking PO
C/W schedule ofirmev, prn dilaudid/toradol
PPI for GI ppx
Lovenox and SCDs for VTE ppx
OOB/Ambulate as able
Subjective Data
-
Date of Service: March 27, 2025
Pt seen and examined at bedside with Dr Carlos. Demarcus n/v. OOB to chair. Feeling more bloating and discomfort after clear liquid breakfast tray. Continues to pass flatus. Had some small liquid stools.
Objective Data
-
Intake and Output
03/26/25 03/27/25 03/28/25
06:59 06:59 06:59
Intake Total 1999 / 1999 990 / 990
Output Total 1725 / 1725 325 / 325
Balance 275 / 275 665 / 665
Intake:
Oral fluids 300 / 300 960 / 960
IV fluids (Total) 1500 / 1500
IV piggybacks 200 / 200
Amount instilled into GI Tube ( 30 / 30
Total)
[place] Sump 30 / 30
Output:
Gastrointestinal tube output ( 500 / 500 150 / 150
Total)
[place] Sump 500 / 500 150 / 150
Urine, Cox 1225 / 1225
Urine, Voided 175 / 175
Other:
Number of approximated MODERATE 3
amounts of urine
Number of approximated LARGE 1
amounts of urine
Vital Signs
Temp Pulse Resp BP Pulse Ox
98.3 F 80 16 155/82 96
03/27/25 07:35 03/27/25 07:35 03/27/25 07:35 03/27/25 07:35 03/27/25 07:35
Lab Results
03/27/25 06:36
03/27/25 06:36
Calcium 8.8 mg/dl (8.4-10.2) 03/27/25 06:36
Phosphorus 3.1 mg/dl (2.5-4.5) 03/26/25 06:56
Magnesium 1.8 mg/dl (1.6-2.3) 03/26/25 06:56
Total Bilirubin 1.0 mg/dl (0.2-1.3) 03/26/25 06:56
AST 26 U/L (14-36) 03/26/25 06:56
ALT 46 U/L (0-35) H 03/26/25 06:56
Alkaline Phosphatase 55 U/L (38-126) 03/26/25 06:56
Total Protein 5.6 g/dl (6.3-8.2) L 03/26/25 06:56
Albumin 3.1 g/dl (3.5-5.0) L 03/26/25 06:56
Physical Exam
-
NAD
ABD soft, mild distention, tenderness near incision
Midline incision with intact dressing, some strikethrough
[2025-03-27 16:14] VITALS: BP 139/90
[2025-03-27] MEDS: LOVENOX 40 MG SC (18:04)
[2025-03-27 23:15] VITALS: BP 146/77
[2025-03-28] MEDS: OFIRMEV 100 IV (03:09)
[2025-03-28 06:23] LABS: Hematocrit 36.7 % (37.0-47.0); Hemoglobin 12.6 g/dL (12.0-16.0); Mean Corp Hgb Conc. 34.3 g/dL (33.0-37.0); Mean Corpuscular Volume 88.4 fL (81.0-99.0); Platelet Count 185 10^3/uL (130-400); Red Cell Dist. Width 12.3 % (11.5-14.5)
[2025-03-28 06:39] LABS: Blood Urea Nitrogen 3 mg/dl (7-17); Calcium 9.1 mg/dl (8.4-10.2); Carbon Dioxide 27 mmol/L (22-30); Chloride 106 mmol/L (98-107); Estimated Creatinine Clearance > 125 ml/min; Glucose 102 mg/dl (70-99); Magnesium 1.7 mg/dl (1.6-2.3); Potassium 4.5 mmol/L (3.5-5.1); Sodium 138 mmol/L (135-145); eGFR > 60.00
[2025-03-28 07:15] VITALS: BP 151/91
--- NOTE | 2025-03-28 07:37 | W.PN.UPDATE ---
Update Note
Progress Note Update
Per discussion with gen surgery, patient transferred to surgery service.
Hospitalist service signing off, please re-consult as necessary.
--- NOTE | 2025-03-28 07:38 | W.PN.GS2 ---
Today's Communication / Plan
-
`
Assessment / Plan
-
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
POD #4 lap to open lysis of adhesions
AFVSS
Passing flatus and liquid stools; improving post op GI function
Plan: PO multimodal pain options
full liquid diet with ensure
stop IVFs
okay to shower
Lovenox and SCDs for VTE ppx
OOB/Ambulate as able
probable dc in 24-36hrs
Subjective Data
-
Date of Service: March 28, 2025
pt seen and examined
ally clear liquids
multiple loose BMs and passing flatus
dante pains/cramps at times and still with bloating/fullness but no nausea
Objective Data
-
Intake and Output
03/27/25 03/28/25 03/29/25
06:59 06:59 06:59
Intake Total 990 / 990 2520 / 2520
Output Total 325 / 325
Balance 665 / 665 2520 / 2520
Intake:
Oral fluids 960 / 960 1260 / 1260
IV fluids (Total) 960 / 960
IV piggybacks 300 / 300
Amount instilled into GI Tube ( 30 / 30
Total)
[place] Sump 30 / 30
Output:
Gastrointestinal tube output ( 150 / 150
Total)
[place] Sump 150 / 150
Urine, Voided 175 / 175
Other:
Number of approximated SMALL 1
amounts of urine
Number of approximated MODERATE 3 2
amounts of urine
Number of approximated LARGE 1
amounts of urine
Vital Signs
Temp Pulse Resp BP Pulse Ox
98.4 F 73 16 146/77 98
03/27/25 23:15 03/27/25 23:15 03/27/25 23:15 03/27/25 23:15 03/27/25 23:15
Lab Results
03/28/25 05:49
03/28/25 05:49
Calcium 9.1 mg/dl (8.4-10.2) 03/28/25 05:49
Phosphorus 3.9 mg/dl (2.5-4.5) 03/28/25 05:49
Magnesium 1.7 mg/dl (1.6-2.3) 03/28/25 05:49
Total Bilirubin 1.0 mg/dl (0.2-1.3) 03/26/25 06:56
AST 26 U/L (14-36) 03/26/25 06:56
ALT 46 U/L (0-35) H 03/26/25 06:56
Alkaline Phosphatase 55 U/L (38-126) 03/26/25 06:56
Total Protein 5.6 g/dl (6.3-8.2) L 03/26/25 06:56
Albumin 3.1 g/dl (3.5-5.0) L 03/26/25 06:56
Physical Exam
-
NAD AAOx3
ABD: soft, ND, mild incisional tenderness
incision with soni - dressing removed
lap sites with glue dressings
Patient has a payne catheter: No
--- NOTE | 2025-03-28 10:49 | CM ---
Reviewed the chart notes and spoke with the patient at the bedside. Patient diet advanced to full liquids. CM continues to be available to patient/family and is monitoring medical plan for needs at discharge.
Plan: Discharge to home when medically stable. No needs anticipated at this time.
[2025-03-28] MEDS: TYLENOL 1000 MG PO ×2 (14:50→20:50)
[2025-03-28 15:30] VITALS: BP 130/86
[2025-03-28] MEDS: D5/0.45%NSS with KCL 20 MEQ IV (15:43)
[2025-03-28] MEDS: LOVENOX 40 MG SC (17:37)
[2025-03-28 23:13] VITALS: BP 150/84
[2025-03-29] MEDS: MYLICON 80 MG PO (00:57)
--- NOTE | 2025-03-29 07:19 | W.PN.GS2 ---
Today's Communication / Plan
-
`
Assessment / Plan
-
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
POD #5 lap to open lysis of adhesions
AFVSS
Passing flatus and liquid stools and doing well post op
Plan: PO multimodal pain options
low residue with ensure
okay to shower
Lovenox and SCDs for VTE ppx
OOB/Ambulate as able
d/c after lunch today
Subjective Data
-
Date of Service: March 29, 2025
pt seen and examined
continues with multiple BMs loose to semi-formed
no nausea
occasional gas cramps/discomfort - after ice cream
ambulating well
Objective Data
-
Intake and Output
03/28/25 03/29/25 03/30/25
06:59 06:59 06:59
Intake Total 2520 / 2520 1120 / 1120
Balance 2520 / 2520 1120 / 1120
Intake:
Oral fluids 1260 / 1260 960 / 960
IV fluids (Total) 960 / 960 160 / 160
IV piggybacks 300 / 300
Other:
Number of approximated SMALL 1
amounts of urine
Number of approximated MODERATE 2 3
amounts of urine
Vital Signs
Temp Pulse Resp BP Pulse Ox
97.6 F 84 18 150/84 96
03/28/25 23:13 03/28/25 23:13 03/28/25 23:13 03/28/25 23:13 03/28/25 23:13
Lab Results
03/28/25 05:49
03/28/25 05:49
Calcium 9.1 mg/dl (8.4-10.2) 03/28/25 05:49
Phosphorus 3.9 mg/dl (2.5-4.5) 03/28/25 05:49
Magnesium 1.7 mg/dl (1.6-2.3) 03/28/25 05:49
Total Bilirubin 1.0 mg/dl (0.2-1.3) 03/26/25 06:56
AST 26 U/L (14-36) 03/26/25 06:56
ALT 46 U/L (0-35) H 03/26/25 06:56
Alkaline Phosphatase 55 U/L (38-126) 03/26/25 06:56
Total Protein 5.6 g/dl (6.3-8.2) L 03/26/25 06:56
Albumin 3.1 g/dl (3.5-5.0) L 03/26/25 06:56
Physical Exam
-
NAD AAOx3
ABD: soft, ND, mild TTP at incision sites
midline incision with soni - no erythema, no drainage
--- NOTE | 2025-03-29 07:27 | W.DS.TRANS ---
DC Summary - Freight Coordinator
-
Discharge Instructions:
Discharge Diagnosis/Procedures Small bowel obstruction. Laparoscopic assisted
converted to open lysis of adhesions
Diet Low Residue
Additional Diets Low fibrous foods for ~6 weeks postoperatively.
Smaller portion sizes for meals spread out
throughout the day 4-6 times daily. Protein
supplements such as Boost or Ensure.
Activity No strenuous activity
Additional Activity No lifting over 20 pounds for 6 weeks postop.
Routine daily light activities, walking,
standing and stairs are all okay as tolerated.
Driving Restrictions No driving for 3 to 5 days or if using narcotics
Bathing Restrictions OK to Shower
Wound Care May leave incision open to air. Shower daily to
cleanse skin around incision sites. Cover with
dry gauze dressing for any drainage/spotting.
Instructions:
Stand-Alone Forms:
Changes to Home Medications: No
Discharge Medications:
DC Medications w/original date entered in [employer]
ascorbic acid (vitamin C) 1,000 mg tablet (Vitamin C) 1 g PO DAILY Supplement 10/27/23
cholecalciferol (vitamin D3) 125 mcg (5,000 unit) tablet (Vitamin D3) 125 mcg PO DAILY Supplement 10/27/23
ibuprofen 400 mg tablet 400 mg PO Q6H PRN pain 10/27/23
multivitamin 1 tab PO DAILY Supplement 10/27/23
acetaminophen 500 mg tablet (Tylenol Extra Strength) 1,000 mg (2 x 500 mg) PO Q6HPRN PRN mild pain #1 tab 03/29/25
oxycodone 5 mg tablet 5 mg PO Q4HPRN PRN breakthrough/severe pain #7 tabs 03/29/25
Home Medication Changes
Pending Results: No
[2025-03-29 08:00] VITALS: BP 137/94
[2025-03-29 14:29] VITALS: BP 145/80
== END 2025-03-29 14:35 | disposition home or self-care (01) | DRG 337 ==
LOC: 2 SOUTH 18:25
PROVIDERS: Emergency Medicine; Hospitalist; Physician Assistant Medical; Registered Nurse; ADMITTING PHYSICIAN Hospitalist; ATTENDING PHYSICIAN Surgery; CONSULT PHYSICIAN Surgery; EMERGENCY PHYSICIAN Student in an Organized Health Care Education/Training Program; FAMILY PHYSICIAN Family Medicine
PROC: 0DNE0ZZ Release Large Intestine, Open Approach (ICD-10-PCS; 2025-03-27)
PROC: 0DN80ZZ Release Small Intestine, Open Approach (ICD-10-PCS; 2025-03-27)
DX: K56.51 Intestinal adhesions [bands], with partial obstruction (principal); N73.6 Female pelvic peritoneal adhesions (postinfective); Z53.31 Laparoscopic surgical procedure converted to open procedure; Z90.710 Acquired absence of both cervix and uterus; E66.9 Obesity, unspecified; Z68.38 Body mass index [BMI] 38.0-38.9, adult; J45.909 Unspecified asthma, uncomplicated; F17.210 Nicotine dependence, cigarettes, uncomplicated; F32.A Depression, unspecified; Z85.42 Personal history of malignant neoplasm of other parts of uterus
CPT/HCPCS: 71045; 74018; 74177; 74250; 80048; 80053; 80306; 81003; 81015; 83690; 83735; 84100; 84134; 84478; 85025; 85027; 93005; 96361; 96374; 96375; 99285; 99406; Q9967

== ENCOUNTER 2025-03-31 15:00 | Observation (INO) | payer OTHER, SELFPAY ==
[2025-03-31] VITALS (8 sets, daily range): BP systolic 131–159; BP diastolic 79–102; BMI 37.0
[2025-03-31] MEDS: DILAUDID 1 MG IV (11:43)
[2025-03-31] MEDS: ZOFRAN 4 MG IV (11:44)
[2025-03-31] MEDS: NSS 1000 IV ×3 (11:44→23:10)
[2025-03-31 11:46] LABS: Hematocrit 45.1 % (37.0-47.0); Hemoglobin 15.6 g/dL (12.0-16.0); Mean Corp Hgb Conc. 34.6 g/dL (33.0-37.0); Mean Corpuscular Volume 88.3 fL (81.0-99.0); Nucleated Red Blood Cells % 0 %; Platelet Count 347 10^3/uL (130-400); Red Cell Dist. Width 12.5 % (11.5-14.5)
[2025-03-31 12:51] LABS: ALT (SGPT) 72 U/L (0-35); AST (SGOT) 42 U/L (14-36); Albumin 4.0 g/dl (3.5-5.0); Alkaline Phosphatase 58 U/L (38-126); Blood Urea Nitrogen 18 mg/dl (7-17); Calcium 9.7 mg/dl (8.4-10.2); Carbon Dioxide 24 mmol/L (22-30); Chloride 102 mmol/L (98-107); Glucose 132 mg/dl (70-99); Lipase 132 U/L (23-300); Potassium 4.3 mmol/L (3.5-5.1); Sodium 138 mmol/L (135-145); Total Protein 7.1 g/dl (6.3-8.2); eGFR > 60.00
[2025-03-31 13:57] LABS: Urine Character Clear (Clear)
--- NOTE | 2025-03-31 13:59 | HPS.HSE ---
Family Physician
-
Family Physician: Margi Miller MD
Chief Complaint
-
n/v/cramping
History of Present Illness
Ms Ortega is a 54 yo female with a h/o endometrial adenocarcinoma (FIGO grade 1) s/p FRAN/BSO with partial omentectomy in 2020, GENIE REYNOLDS eTEP RR (2023 [facility]), with recent history of recurrent SBO's admitted from 03/22-03/29/2025 with sbo managed
operatively after failed nonoperative measures with laparoscopic converted open laparotomy for NINO 03/24/25 ([facility]). She was initially tolerating diet well and notes that yesterday, she had a large BM and continued passing flatus and so began
increasing her intake. She had a meal of baked chicken with parmesan, mashed potatoes and boiled carrots with celery and began having gas pains overnight. This morning, she had her coffee and a slice of toast and felt it wasn't sitting well. Later
in the morning, she began vomiting. Initially she threw up what she had for breakfast and then had 3 subsequent episodes of smaller amounts of gastric contents. She denies bilious emesis or hematemesis. She notes she continues to pass flatus but is
having cramping pains throughout her abdomen. She denies drainage from her incision or erythema. She denies fevers or chills.
Medical History
Past Medical History
Past Medical History: Reports Asthma, Cancer (endometrial adenocarcinoma FIGO 1) and Other (SBOs recurrent s/p surgery for nino 03/24/25)
Past Surgical History: Reports Gynocological (LEEP, D&C, CHAD/BSO with partial omentectomy (2020 [facility])) and Other (GENIE REYNOLDS eTEP RR (2023 [facility]), Laparoscopic converted open laparotomy for NINO 03/24/25)
Social History
Tobacco: Smoker (1ppd)
Alcohol: None
Family History
Family History: Not pertinent
Allergies / Home Medications
Allergies reflects when Allergies were last updated in [employer].
Home Medications with original date entered in [employer]
Allergy/Medication List:
Patient Allergies
Allergy/AdvReac Type Severity Reaction Status Date / Time
grass pollen Allergy asthma Verified 03/31/25 10:52
�Medication �Instructions �Recorded �Confirmed �Type
ascorbic acid (vitamin C) 1,000 mg 1 g PO DAILY Supplement 10/27/23 03/22/25 History
tablet (Vitamin C)
cholecalciferol (vitamin D3) 125 125 mcg PO DAILY Supplement 10/27/23 03/22/25 History
mcg (5,000 unit) tablet (Vitamin
D3)
ibuprofen 400 mg tablet 400 mg PO Q6H PRN pain 10/27/23 03/22/25 History
multivitamin 1 tab PO DAILY Supplement 10/27/23 03/22/25 History
acetaminophen 500 mg tablet 1,000 mg (2 x 500 mg) PO Q6HPRN 03/29/25 Rx
(Tylenol Extra Strength) PRN mild pain #1 tab
oxycodone 5 mg tablet 5 mg PO Q4HPRN PRN 03/29/25 Rx
breakthrough/severe pain #7 tabs
Review of Systems
-
History Source: Patient
A 12 point ROS was completed and negative except as noted: Yes
Physical Exam
Vital Signs
Vital Signs
Temp Pulse Resp BP Pulse Ox
97.8 F 90 17 139/82 97
03/31/25 10:52 03/31/25 13:30 03/31/25 13:30 03/31/25 13:30 03/31/25 13:30
Physical Exam
General: Well Developed, Well Nourished and No Apparent Distress
HEENT: NormoCephalic and Other (dry, patulous MM); No Moist mucous membranes
Respiratory: Non Labored Respirations
GI: Soft, Non Distended and Tender (mild incisional tenderness)
Skin: Warm, Dry and Other (midline incision healing well, soni intact without erythema or purulence)
Neuro: Awake, Alert and AO x 3
Psych: Calm
Laboratory Results
-
03/31/25 11:41
03/31/25 12:15
Laboratory Results
Total Bilirubin 0.6 mg/dl (0.2-1.3) 03/31/25 12:15
AST 42 U/L (14-36) H 03/31/25 12:15
ALT 72 U/L (0-35) H 03/31/25 12:15
Alkaline Phosphatase 58 U/L (38-126) 03/31/25 12:15
Lipase 132 U/L (23-300) 03/31/25 12:15
Data Reviewed
-
CT Scan: Image Personally Visualized and interpreted, Report Reviewed by me, Discussed with Nurse and Discussed with Patient
Lab Data: Labs Reviewed by me, Discussed with Physician and Discussed with Patient
Old Records: Reviewed
Impression/Plan
-
IMPRESSION:
54 yo female with a recent history of recurrent SBO's admitted from 03/22-03/29/2025 with sbo managed operatively after failed nonoperative measures with laparoscopic converted open laparotomy for NINO 03/24/25 ([facility]). She was initially tolerating
diet well and notes that yesterday, she had a large BM and continued passing flatus and so began increasing her intake. She presents today with nausea with vomiting x4. She continues passing flatus. No fevers. VSS. Leukocytosis present to 18.7.
BUN/CR ratio consistent with mild dehydration. CT a/p with IV no oral contrast obtained in the ED with gastroenteritis vs pSBO suspect d/t edema from recent surgical procedure/early adhesion formation.
PLAN:
Will admit to surgical service
NPO with sips of clears
Analgesics/antiemetics prn
IVF with NSS at 125ml/hr
Lovenox for VTE ppx
No plans for emergent surgery at this time. Will hold off on NGT placement. Follow off abx
[2025-03-31 14:13] LABS: Urine Red Blood Cell 0-2 /HPF (0-2); Urine White Cell 0-2 /HPF (0-5)
--- NOTE | 2025-03-31 14:16 | ED.GENMED ---
History of Present Illness
General
Chief Complaint: Abdominal Symptoms
Source: patient and spouse
Time Seen by Provider: 03/31/25 11:05
History of Present Illness
History of Present Illness:
Note:
CHIEF COMPLAINT(S)
Abdominal pain and nausea with vomiting.
HISTORY OF PRESENT ILLNESS
The patient is a 54-year-old female presenting with abdominal pain and vomiting. The symptoms started after an overzealous dinner last night. She vomited three times within an hour and has not passed any solid stool since, although she is passing
some gas. She describes trying to control her breathing due to the pain, which is located primarily around her surgical site. The patient attempted to alleviate her symptoms with simethicone (Gas-X) without relief. She had undergone a laparoscopic
procedure recently to remove scar tissue, but notes a history of surgical hernia repair. Pain is exacerbated when pressed around the sutures. Previous pain management with hydromorphone (Dilaudid) provided relief during her last visit.
Additional historian
states that she had been doing relatively fine and was under control of her pain but the pain started somewhat abruptly with profound amount of vomiting
PAST MEDICAL AND SURIGICAL HISTORY
Recent laparoscopic procedure for scar tissue removal. History of surgical hernia repair.
PHYSICAL EXAM
General: No respiratory distress. Moderate discomfort noted.
Skin: Surgical scar observed with soni intact, clean, dry, no redness or drainage.
Abdomen: Midline laparotomy scar. No rebound tenderness, but moderate abdominal discomfort on palpation. Loss of bowel sounds.
Cardiovascular: Heart sounds regular.
PLAN
1. Administer pain management with hydromorphone (Dilaudid).
2. Conduct a repeated abdominal scan to assess the current condition.
3. Administer fluids and monitor lab results.
4. Use ondansetron (Zofran) for nausea.
DIFFERENTIAL DIAGNOSIS
The Differential Diagnosis includes, in no particular order and is not limited to:
1. Postoperative ileus
2. Bowel obstruction
3. Adhesive small bowel obstruction
4. Intra-abdominal abscess
5. Gastroenteritis
6. Peptic ulcer disease
7. Diverticulitis
8. Pancreatitis
9. Gastroesophageal reflux disease
10. Intestinal perforation
Disposition:
SUMMARY OF ENCOUNTER
A 54-year-old female presented to the emergency department with acute onset abdominal pain and vomiting, following a recent laparoscopic procedure. She reports incomplete stool passage and worsened pain at her surgical site. She has a history of
surgical hernia repair. Examination revealed abdominal discomfort and a loss of bowel sounds. Laboratory tests showed a leukocytosis with a white blood cell count of 18.7 and neutrophils at 83%. A CT scan indicated a persistent small bowel
obstruction with a small to moderate amount of fluid in the mesentery, likely post-operative. The management plan was discussed with the general surgery team.
DISPOSITION
Admission.
ASSESSMENT
The patient is likely experiencing a postoperative complication, likely a small bowel obstruction, potentially due to adhesions or other factors related to her recent surgical history.
EMERGENCY TREATMENTS ADMINISTERED
Hydromorphone for pain management and ondansetron for nausea.
MANAGEMENT OF THE PATIENTS CARE WAS DISCUSSED WITH
Case discussed with general surgery, who will evaluate the patient at the bedside.
PLAN
Admission for further evaluation and management by surgery. Continue with intravenous fluids, monitoring, and symptomatic management with pain control and antiemetics. Await surgical evaluation for potential intervention or continued conservative
management.
INDEPENDENT REVIEW OF LABS AND INTERPRETATION OF TESTS
My independent review of the CBC shows leukocytosis with a white blood cell count of 18.7 and neutrophil percentage of 83%. My independent CT scan interpretation reveals persistent small bowel obstruction with associated mesenteric fluid, likely
post-operative.
MEDICATION RECONCILIATION
1. Hydromorphone administered for pain relief.
2. Ondansetron administered for nausea.
MEDICAL DECISION MAKING
-Complexity of Data Reviewed: Chronic conditions affecting care include a history of laparoscopic surgery for scar tissue removal and surgical hernia repair. Differential diagnoses considered included postoperative ileus, bowel obstruction, adhesive
small bowel obstruction, intra-abdominal abscess, gastroenteritis, peptic ulcer disease, diverticulitis, pancreatitis, gastroesophageal reflux disease, and intestinal perforation.
-Data:
Category 1: My independent interpretation of the CT scan indicates a persistent small bowel obstruction with mesenteric fluid.
Category 3: Discussion of management with the general surgery team for surgical evaluation and potential intervention.
CRITICAL CARE TIME
Not applicable.
DIAGNOSIS
- Small bowel obstruction post-surgical [K56.60].
Phy Exam
Physical Exam
Physical Exam:
.
Course
Orders/Labs/Results
Orders:
Orders
03/31/25 11:28
CT Abd/Pel (IV only)-DH only Urgent
Comment:
Reason For Exam: vomiting, lower abd pain, recent SBO/lysis of adhe
03/31/25 11:30
0.9% Sodium Chloride 1000 ml [Nss] 1,000 ml IV BOLUS
HYDROmorphone [Dilaudid] 1 mg IV NOW STA
Ondansetron Injectable [Zofran] 4 mg IV NOW STA
03/31/25 11:41
Complete Blood Count/With Diff Urgent
03/31/25 12:15
Comprehensive Metabolic Panel Urgent
Lipase Urgent
03/31/25 13:29
Urinalysis Reflex To Culture Urgent
Date Specimen was Collected: 03/31/25
Time Specimen was Collected: 11:30
Urine Microscopic Reflex Cult Urgent
Abnormal Lab Results
03/31/25 03/31/25 03/31/25
11:41 12:15 13:29
WBC 18.7 H 10^3/uL
(4.8-10.8)
Abs Immat Gran (auto) 0.1 H 10^3/uL
(0-0.05)
Absolute Neuts (auto) 15.6 H 10^3/uL
(1.4-6.5)
Absolute Monos (auto) 1.4 H 10^3/uL
(0.1-0.6)
Immature Gran % 0.7 H %
(0-0.5)
Neutrophils % 83.6 H %
(42.2-75.2)
Lymphocytes % 7.6 L %
(20.5-51.1)
BUN 18 H mg/dl
(7-17)
Glucose 132 H mg/dl
(70-99)
AST 42 H U/L
(14-36)
ALT 72 H U/L
(0-35)
Urine Ketones 3+ A
(Negative)
Ur Occult Blood Reflex 1+ A
(Negative)
Urine Bacteria (Reflex) Few A
(Negative)
Urine Albumin (Reflex) 2+ A
(Neg - Trace)
03/31/25 11:41
03/31/25 12:15
Vital Signs
Initial and Last Documented VS:
Initial Vital Signs
Temp Pulse Resp BP Pulse Ox
97.8 F 110 18 159/102 98
03/31/25 10:52 03/31/25 10:52 03/31/25 10:52 03/31/25 10:52 03/31/25 10:52
Last Documented Vital Signs
Temp Pulse Resp BP Pulse Ox
97.8 F 91 12 137/79 92
03/31/25 10:52 03/31/25 14:15 03/31/25 14:15 03/31/25 14:00 03/31/25 14:20
*Pulse Oximetry
SaO2: 92
Oxygen Mode of Delivery: Room air
Patient hypoxic: yes
*Critical Care Note
Total Time (30-74mins, 75-104mins- exclusive of procedures): Not Applicable
ED Attending Note
-
Portions of this chart may have been created with voice recognition software.� Occasional wrong word or��sound alike� substitutions may have occurred due to the inherent limitations of voice recognition software.
Discharge Plan
Departure
Patient Disposition: Admit
Date of Disposition: 03/31/25
Time of Disposition: 14:19
Admit to: Med/Surg
Presentation/result/management discussed w/ accepting MD/DO: surgery
Discharge Problem:
SBO (small bowel obstruction)
Prescriptions:
No Action
multivitamin Tablet
1 tab PO DAILY
ascorbic acid (vitamin C) [Vitamin C] 1,000 mg Tablet
1 g PO DAILY
ibuprofen 400 mg Tablet
400 mg PO Q6H PRN (Reason: pain)
cholecalciferol (vitamin D3) [Vitamin D3] 125 mcg (5,000 unit) Tablet
125 mcg PO DAILY
acetaminophen [Tylenol Extra Strength] 500 mg tablet
1,000 mg PO Q6HPRN PRN (Reason: mild pain) Qty: 1 0RF
oxycodone 5 mg tablet
5 mg PO Q4HPRN PRN (Reason: breakthrough/severe pain) Qty: 7 0RF
Referrals:
Margi Miller MD [Family Provider]
Interventions
Interventions:
*Risk Screen - Suicide Last Done: 03/31/25 10:52
*General Assessment Last Done: 03/31/25 11:48
*Neglect/Abuse Screening Last Done: 03/31/25 11:48
*ED- Fall Risk Assessment Last Done: 03/31/25 11:48
*ED COVID-19 Vaccine History Last Done: 03/31/25 11:25
*ED Influenza Vaccine History Last Done: 03/31/25 11:25
UI-Dmnogs-Gfnwloziim Assessment Last Done: 03/31/25 11:48
Discharge Date and Time
Print Language: MALTESE
--- NOTE | 2025-03-31 14:56 | EDCM ---
CM reviewed chart and met with pt bedside in ED. Lives with her in 2 story home, 9 steps to enter, 7 additional steps to bedroom and full bath.
Independent in ADLs, personal care and ambulation at baseline, no assistive devices.
Confirms prescription coverage.
No hx VN or SNF.
PCP: Margi Miller
Pharmacy: [facility]
Anticipate discharge home, CM will continue to follow for any discharge planning needs.
[2025-03-31] MEDS: LOVENOX 40 MG SC (18:12)
[2025-04-01 07:08] LABS: ALT (SGPT) 54 U/L (0-35); AST (SGOT) 33 U/L (14-36); Albumin 3.6 g/dl (3.5-5.0); Alkaline Phosphatase 46 U/L (38-126); Blood Urea Nitrogen 13 mg/dl (7-17); Calcium 8.6 mg/dl (8.4-10.2); Carbon Dioxide 24 mmol/L (22-30); Chloride 108 mmol/L (98-107); Estimated Creatinine Clearance > 125 ml/min; Glucose 95 mg/dl (70-99); Potassium 4.5 mmol/L (3.5-5.1); Sodium 137 mmol/L (135-145); Total Protein 6.3 g/dl (6.3-8.2); eGFR > 60.00
[2025-04-01 07:42] VITALS: BP 129/78
[2025-04-01] MEDS: NSS 1000 IV ×2 (07:47→17:11)
[2025-04-01] MEDS: TYLENOL 650 MG PO ×3 (08:57→22:48)
[2025-04-01 09:41] LABS: Hematocrit 36.6 % (37.0-47.0); Hemoglobin 12.5 g/dL (12.0-16.0); Mean Corp Hgb Conc. 34.2 g/dL (33.0-37.0); Mean Corpuscular Volume 86.9 fL (81.0-99.0); Platelet Count 183 10^3/uL (130-400); Red Cell Dist. Width 13.1 % (11.5-14.5)
--- NOTE | 2025-04-01 12:54 | W.PN.GS2 ---
Addendum entered and electronically signed by David Kapoor MD 04/01/25 15:24:
I saw and examined the patient.
The SILK SPOOLER's note was reviewed and I agree with the note.
Comment:
No issues overnight, denies N/V, passing flatus
AFVSS, ABD soft, nondistended, mildly tender on the right side without rebound or guarding
�Agree with trial of clears; if tolerates, okay for full liquids for dinner
Original Note:
Today's Communication / Plan
-
ADAT
Assessment / Plan
-
54 yo with h/o endometrial adenocarcinoma (FIGO grade 1) s/p FRAN/BSO with partial omentectomy in 2020, RAL LIAM, JACIHR eTEP RR (2023 [facility]), with recent history of recurrent SBO's admitted from 03/22-03/29/2025 with sbo managed operatively after
failed nonoperative measures with laparoscopic converted open laparotomy for LIAM 03/24/25 ([facility]). Did well post operatively and was d/c'd on 03/29 to home.
Returned on 03/31 for n/v and abdominal cramping/pain. CT a/p with IV no oral contrast obtained in the ED with gastroenteritis vs pSBO suspect d/t edema from recent surgical procedure/early adhesion formation.
AFVSS
Passing flatus, no further nausea/vomiting. Distention resolved
Leukocytosis resolved
Plan: Trial of clears, ok for FLD for supper if tolerating
analgesics/antiemetics if needed
Continue IVF, decrease rate to 80ml/hr
Lovenox and SCDs for VTE ppx
OOB/Ambulate as able
Subjective Data
-
Date of Service: April 01, 2025
Pt seen and examined at bedside with Dr Kapoor. Denies n/v. Passing flatus. Still with occasional cramping discomfort but denies active pain. No bms today.
Objective Data
-
Intake and Output
03/31/25 04/01/25 04/02/25
06:59 06:59 06:59
Intake Total 1375 / 1375
Balance 1375 / 1375
Intake:
IV fluids (Total) 1375 / 1375
Other:
Number of approximated MODERATE 2
amounts of urine
Vital Signs
Temp Pulse Resp BP Pulse Ox
99 F 76 16 129/78 96
04/01/25 07:42 04/01/25 07:42 04/01/25 07:42 04/01/25 07:42 04/01/25 07:42
Lab Results
04/01/25 06:22
04/01/25 08:05
Calcium Cancelled 04/01/25 08:05
Total Bilirubin 0.6 mg/dl (0.2-1.3) 04/01/25 06:22
AST 33 U/L (14-36) 04/01/25 06:22
ALT 54 U/L (0-35) H 04/01/25 06:22
Alkaline Phosphatase 46 U/L (38-126) 04/01/25 06:22
Total Protein 6.3 g/dl (6.3-8.2) 04/01/25 06:22
Albumin 3.6 g/dl (3.5-5.0) 04/01/25 06:22
Physical Exam
-
NAD AAOx3, moist mm
ABD: soft, ND, mild TTP at incision sites
midline incision with soni - no erythema, no drainage
[2025-04-01 15:17] VITALS: BP 140/83
[2025-04-01] MEDS: LOVENOX 40 MG SC (17:10)
[2025-04-01 23:16] VITALS: BP 156/94
[2025-04-02 07:03] VITALS: BP 135/80
[2025-04-02] MEDS: TYLENOL 650 MG PO (09:23)
--- NOTE | 2025-04-02 14:04 | W.PN.GS2 ---
Addendum entered and electronically signed by David Kapoor MD 04/02/25 19:09:
he CAISSON WORKER's note was reviewed and I agree with the note. Patient was not personally seen as she was discharged before I was available
Original Note:
Today's Communication / Plan
-
advance diet
Assessment / Plan
-
54 yo with h/o endometrial adenocarcinoma (FIGO grade 1) s/p FRAN/BSO with partial omentectomy in 2020, RAL LIAM, JACIHR eTEP RR (2023 [facility]), with recent history of recurrent SBO's admitted from 03/22-03/29/2025 with sbo managed operatively after
failed nonoperative measures with laparoscopic converted open laparotomy for LIAM 03/24/25 ([facility]). Did well post operatively and was d/c'd on 03/29 to home.
Returned on 03/31 for n/v and abdominal cramping/pain. CT a/p with IV no oral contrast obtained in the ED with gastroenteritis vs pSBO suspect d/t edema from recent surgical procedure/early adhesion formation.
AFVSS
Passing flatus, BM yesterday, no further nausea/vomiting. Distention resolved but still feels a little 'full'
Tolerating fulls
Plan: Advance to LRD
analgesics/antiemetics if needed
Continue IVF, decrease rate to 80ml/hr
Lovenox and SCDs for VTE ppx
OOB/Ambulate as able
Tentative d/c later today vs tomorrow pending po tolerance
Subjective Data
-
Date of Service: April 02, 2025
Pt seen and examined at bedside around 1115. Denies n/v. Passing flatus. Lg BM yesterday. full liquids.
Objective Data
-
Intake and Output
04/01/25 04/02/25 04/03/25
06:59 06:59 06:59
Intake Total 1375 / 1375 760 / 760
Balance 1374 760 / 760
Intake:
Oral fluids /
IV fluids (Total) 1374
Other:
Number of approximated MODERATE 2 2
amounts of urine
Number of approximated LARGE 3
amounts of urine
Vital Signs
Temp Pulse Resp BP Pulse Ox
98.3 F 68 16 135/80 96
04/02/25 07:03 04/02/25 07:03 04/02/25 07:03 04/02/25 07:03 04/02/25 07:03
Lab Results
04/01/25 06:22
04/01/25 08:05
Calcium Cancelled 04/01/25 08:05
Total Bilirubin 0.6 mg/dl (0.2-1.3) 04/01/25 06:22
AST 33 U/L (14-36) 04/01/25 06:22
ALT 54 U/L (0-35) H 04/01/25 06:22
Alkaline Phosphatase 46 U/L (38-126) 04/01/25 06:22
Total Protein 6.3 g/dl (6.3-8.2) 04/01/25 06:22
Albumin 3.6 g/dl (3.5-5.0) 04/01/25 06:22
Physical Exam
-
NAD AAOx3, moist mm
ABD: soft, ND, CAISSON WORKER
midline incision with soni - no erythema, no drainage
--- NOTE | 2025-04-02 15:10 | W.DS.TRANS ---
Addendum entered and electronically signed by WIN Alcaraz 04/02/25 16:22:
dictated #[id number]
Original Note:
DC Summary - Smocker
-
Discharge Instructions:
Discharge Diagnosis/Procedures nausea/vomiting
Diet Regular
Activity No strenuous activity
Additional Activity Do not lift over 15lbs for the next 3-4 weeks
Bathing Restrictions OK to Shower
Wound Care Kassandra will be removed at your follow up
appointment 2-3 weeks after your surgery. Ok to
wash incisions gently with soap and water.
Instructions:
Stand-Alone Forms:
Changes to Home Medications: No
Discharge Medications:
DC Medications w/original date entered in [employer]
acetaminophen 500 mg tablet (Tylenol Extra Strength) 1,000 mg (2 x 500 mg) PO Q6HPRN PRN mild pain #1 tab 03/29/25
Home Medication Changes
Pending Results: No
[2025-04-02 15:40] VITALS: BP 137/83
--- NOTE | 2025-04-02 15:40 | CM ---
met with pt and . Pt is discharged. OBS form given and placed on chart. Pt going home with spouse in private car, no needs.
== END 2025-04-02 15:51 | disposition home or self-care (01) ==
LOC: 4 EAST ACU 15:00
PROVIDERS: Registered Nurse; ADMITTING PHYSICIAN Surgery; EMERGENCY PHYSICIAN Emergency Medicine; FAMILY PHYSICIAN Family Medicine
DX: R10.9 Unspecified abdominal pain (principal); R11.2 Nausea with vomiting, unspecified; K56.609 Unspecified intestinal obstruction, unspecified as to partial versus complete obstruction; F17.200 Nicotine dependence, unspecified, uncomplicated; D72.829 Elevated white blood cell count, unspecified; J98.11 Atelectasis; K80.20 Calculus of gallbladder without cholecystitis without obstruction; J45.909 Unspecified asthma, uncomplicated; Z85.42 Personal history of malignant neoplasm of other parts of uterus; Z90.722 Acquired absence of ovaries, bilateral; Z96.649 Presence of unspecified artificial hip joint; Z90.710 Acquired absence of both cervix and uterus
CPT/HCPCS: 74177; 80053; 81003; 81015; 83690; 85025; 85027; 96361; 96374; 96375; 99284; 99406; G0378; Q9967